=== PATIENT | male | born 1980 | race Caucasian/White ===

== ENCOUNTER → 2018-09-10 | Outpatient (CLI) | payer MEDICAID, OTHER ==
[~2018-09-10] MED LIST: BUSP10TA95; CEPH500C PO; PARO20TA5; SULF1TAB35 PO
--- NOTE | 2018-09-11 07:03 | Diagnostic Imaging Report ---
Exam: CT right ankle without contrast. Date: September 10, 2018. Indication: 37-year-old male, calcaneal fracture. Jumped over a wall and landed on heel on Saturday. Comparison: None available. Technique: Axial CT images of the right ankle without contrast were obtained. Coronal and sagittal reformats were obtained and provided. Findings: There is a severely comminuted displaced calcaneal fracture. There is involvement of the posterior margin of the Achilles tendon including near the Achilles tendon insertion best illustrated on sagittal image 18. More inferior aspect of the posterior calcaneus is also involved. There is fracture extension to the posterior calcaneal facet with anterior to posterior offset at articulating surface measuring approximately 2.7 mm measured on sagittal image 17. There is a slight proximal to distal offset of the articulating surface of the lower aspect of the posterior calcaneal facet measuring up to 2.6 mm on sagittal image 15. The middle calcaneal facet is intact. The anterior process of the calcaneus is intact. The fracture extends just medial to the articulating surface of the calcaneus in the region of the calcaneocuboid articulation. There is fracture involvement of the lateral calcaneus proximal to the peroneal tubercle with displaced fracture fragments in this region. There are several fracture fragments of the central calcaneus which are displaced in medial to lateral direction. There is some mild asymmetric widening of the posterior subtalar joint. The anterior subtalar joint is normally aligned. There is no additional identified acute fracture. There is no identified tendon entrapment. There is diffuse subcutaneous edema. Impression: 1. Severely comminuted displaced fracture of the calcaneus including involvement of the articulating surface of the posterior calcaneal facet with mild loss at the articulation of the posterior calcaneal facet and mild asymmetric widening at the posterior subtalar articulation. 2. No identified tendon entrapment. Dictated by: Dictated on workstation # [id number]
== END ==
LOC: RAD 08:42
PROVIDERS: ATTEND Nurse Practitioner Community Health
DX: S92.001A Unspecified fracture of right calcaneus, initial encounter for closed fracture (principal); W17.89XA Other fall from one level to another, initial encounter
CPT/HCPCS: 73700

== ENCOUNTER 2018-09-26 20:15 | Emergency (ER) | payer SELFPAY ==
[~2018-09-26] VITALS: Ht 177.8 cm; Wt 83.9 kg
--- NOTE | 2018-09-26 20:25 | ED Lower Extremity ---
General Stated Complaint: FALL/L ANKLE INJ Source: patient Exam Limitations: no limitations History of Present Illness Date Seen by Provider: Sep 26, 2018 Time Seen by Provider: 20:22 Initial Comments To ER per private vehicle in a wheelchair with a walking boot on the right foot. He states that he "shattered" his right ankle about a month ago and is awaiting surgery at the [facility]. He was recently in prison and just got out. While going down some stairs E tripped last night. He did injure the left ankle in doing so. He now has left ankle swelling and pain. Onset: just prior to arrival Severity: moderate Pain/Injury Location: left ankle Method of Injury: fell Modifying Factors: Worse With Movement Allergies and Home Medications Allergies Coded Allergies: No Known Drug Allergies (Unverified , 09/26/18) Home Medications Lorazepam 1 Mg Tablet, 1 MG SL Q2H PRN for ANXIETY, (Reported) Sulfamethoxazole/Trimethoprim 1 Each Tablet, 1 EACH PO BID Prescribed by: JERILYN SHER on 07/25/15 0251 Patient Home Medication List Home Medication List Reviewed: Yes Review of Systems Constitutional: see HPI EENTM: see HPI Respiratory: no symptoms reported Cardiovascular: no symptoms reported Genitourinary: no symptoms reported Musculoskeletal: see HPI Skin: no symptoms reported Psychiatric/Neurological: No Symptoms Reported Past Yslzkax-Zaigql-Govogv Hx Patient Social History Recent Foreign Travel: No Contact w/Someone Who Travel: No Immunizations Up To Date Tetanus Booster (TDap): Unknown Past Medical History Appendectomy, Orthopedic Physical Exam Vital Signs Vital Signs - First Documented 09/26/18 20:24 Temp 99.1 Pulse 128 Resp 14 B/P (MAP) 118/73 (88) Pulse Ox 99 O2 Delivery Room Air Capillary Refill : Height, Weight, BMI Height: 5'10" Weight: 160lbs. oz. 72.853720zg; 22.96 BMI Method:Stated General Appearance: WD/WN, no apparent distress HEENT: PERRL/EOMI, normal ENT inspection Respiratory: no respiratory distress, no accessory muscle use Hips: bilateral hip non-tender, bilateral hip normal inspection, bilateral hip normal range of motion Legs: bilateral leg non-tender, bilateral leg normal inspection, bilateral leg normal range of motion Knees: bilateral knee non-tender, bilateral knee normal inspection, bilateral knee normal range of motion Ankles: left ankle pain, left ankle soft tissue tenderness, left ankle swelling Feet: bilateral foot non-tender, bilateral foot normal inspection, bilateral foot normal range of motion Neurologic/Psychiatric: alert, normal mood/affect, oriented x 3 Skin: normal color, warm/dry Progress/Results/Core Measures Results/Orders My Orders Orders - JOYCELYN LANGLEY APRN Ankle, Left, 3 Views (09/26/18 20:21) Vital Signs/I&O 09/26/18 20:24 Temp 99.1 Pulse 128 Resp 14 B/P (MAP) 118/73 (88) Pulse Ox 99 O2 Delivery Room Air Departure Impression Primary Impression: Sprain and strain of ankle Disposition: 01 HOME, SELF-CARE Condition: Stable Departure-Patient Inst. Decision time for Depature: 21:28 Referrals: [facility] (PCP/Family) Primary Care Physician Patient Instructions: Ankle Sprain Add. Discharge Instructions: 1. Elevate the foot as much as possible 2. Keep it wrapped as she had it 3. Medication as directed. JOYCELYN LANGLEY APRN Sep 26, 2018 20:25
--- OUTSIDE RECORDS SUMMARY | 2018-09-26 20:25 | XMS REPORT ---
Author Author Migration, Doctor Organization [facility] Address Unknown Phone Unavailable Care Team Providers Care Museum Registrar Name Role Phone Migration, Doctor Unavailable Unavailable PROBLEMS Type Condition ICD9-CM Code [id number] Code Onset Dates Condition Status SNOMED Code Problem Chronic hepatitis C without hepatic coma B18.2 Active 396649327 Problem Erectile dysfunction, unspecified erectile dysfunction type N52.9 Active 975063496 Problem Mood disorder F39 Active 70412766 Problem Anxiety F41.9 Active 03528676 Problem Carpal tunnel syndrome, right upper limb G56.01 Active 48400557 Problem HPV (human papilloma virus) anogenital infection A63.0 Active 016236400 ALLERGIES No Information ENCOUNTERS Encounter Location Date Diagnosis [facility] [id number] [place] [address] July, Mood disorder F39 [facility] [address] [place] [id number] Jun, Mood disorder F39 [facility] [id number] [place] [address] May, [facility] [id number] [place] [address] Feb, [facility] [id number] [place] [address] Jan, Anxiety F41.9 [facility] [id number] [place] [address] Jan, Anxiety F41.9 [facility] [id number] [place] [address] 15 Jan, 2018 Anxiety F41.9 ; Chronic hepatitis C without hepatic coma B18.2 and Erectile dysfunction, unspecified erectile dysfunction type N52.9 [facility] [id number] [place] [address] Dec, Anxiety F41.9 [facility] [id number] [place] [address] Sep, Lateral epicondylitis, right elbow M77.11 [facility] [id number] [place] [address] Aug, [facility] [id number] [place] [address] Jun, [facility] [id number] [place] [address] Apr, Lateral epicondylitis, right elbow M77.11 [facility] [id number] [place] [address] Mar, Lateral epicondylitis, right elbow M77.11 [facility] [id number] [place] [address] Feb, Elbow tendinitis M77.8 [facility] [id number] [place] [address] Jan, Pneumonia of right lower lobe due to infectious organism J18.1 [facility] [id number] [place] [address] Dec, Elbow tendinitis M77.8 [facility] [id number] [place] [address] Dec, Anxiety F41.9 [facility] [id number] [place] [address] Sep, Chronic hepatitis C without hepatic coma B18.2 [facility] [address] [id number] Mar, Anxiety F41.9 [facility] [id number] [place] [address] Feb, [facility] [id number] [place] [address] Jan, [facility] [id number] [place] [address] Jan, [facility] [id number] [place] [address] Dec, Dental caries K02.9 [facility] [id number] [place] [id number] Dec, [facility] [address] [address] Dec, [facility] [id number] [place] [address] Dec, Dental examination Z01.20 [facility] [id number] [place] [address] Nov, [facility] [id number] [place] [address] Oct, Anxiety F41.9 [facility] [id number] [place] [address] Sep, [facility] [id number] [place] [address] Aug, Abscess of buttock, right L02.31 [facility] [id number] [place] [address] July, Abscess of buttock, right L02.31 [facility] [id number] [place] [address] Feb, Anxiety F41.9 [facility] [id number] [place] [address] Jan, Mood disorder F39 [facility] [id number] [place] [address] Jan, Mood disorder F39 and Rib contusion, right, subsequent encounter S20.211D [facility] [address] [id number] Jan, Anxiety F41.9 and Contusion, chest wall, right, initial encounter S20.211A [facility] [id number] [place] [address] Dec, [facility] [id number] [place] [address] Oct, Anxiety 300.00 [facility] [id number] [place] [address] Sep, Depression 311 [facility] [id number] [place] [address] Jun, [facility] [id number] [place] [address] Jun, [facility] [id number] [place] [address] May, [facility] [id number] [place] [address] May, [facility] [id number] [place] [address] Apr, [facility] [id number] [place] [address] Apr, [facility] [id number] [place] [address] Apr, [facility] [id number] [place] [address] Apr, [facility] [address] [address] Mar, [facility] [id number] [place] [address] Mar, [facility] [address] [address] Mar, [facility] [id number] [place] [address] Mar, [facility] [place] [facility] [address] [id number] [place] [address] Nov, [facility] [place] [facility] [address] [id number] [place] [address] Nov, [facility] [place] [facility] [address] [id number] [place] [address] Nov, [facility] [place] [facility] [address] [id number] [place] [address] Nov, [facility] [place] [facility] [address] [id number] [place] [address] Oct, [facility] [place] [facility] [address] [id number] [place] [address] Oct, [facility] [place] [facility] [address] [id number] [place] [address] Oct, [facility] [place] [facility] [address] [id number] [place] [address] Oct, [facility] [place] [facility] [address] [id number] [place] [address] Oct, [facility] [place] [facility] [address] [id number] [place] [address] Oct, [facility] [place] [facility] [address] [id number] [place] [address] Nov, [facility] [place] [facility] [address] [id number] [place] [address] Jun, [facility] [place] [facility] [address] [id number] [place] [address] Jun, [facility] [place] [facility] [address] [id number] [place] [address] Apr, [facility] [place] [facility] [address] [id number] [place] [address] Jan, [facility] [place] [facility] [address] [facility] [id number] [address] Jan, [facility] [id number] [address] Jun, [facility] [id number] [address] Jun, [facility] [id number] [address] Mar, [facility] [address] [address] Mar, [facility] [id number] [address] Mar, [facility] [id number] [address] May, IMMUNIZATIONS No Known Immunizations SOCIAL HISTORY Never Assessed [place] FOR [place]IT [place] [place] VITAL SIGNS MEDICATIONS Unknown Medications RESULTS No Results PROCEDURES No Known procedures INSTRUCTIONS MEDICATIONS ADMINISTERED No Known Medications MEDICAL (GENERAL) HISTORY Type Description Date Medical History carpal tunnel Medical History hemorrhoids Medical History depression Medical History HPV Medical History Cannabis abuse Medical History Alcohol abuse Surgical History appendectomy Surgical History Shattered jaw repaired 18 yoa Hospitalization History surgery
--- OUTSIDE RECORDS SUMMARY | 2018-09-26 20:25 | XMS REPORT ---
Author Author Migration, Doctor Organization [facility] Address Unknown Phone Unavailable Care Team Providers Care Die Turner Name Role Phone Migration, Doctor Unavailable Unavailable PROBLEMS Type Condition ICD9-CM Code XXX05-OR Code Onset Dates Condition Status SNOMED Code Problem Chronic hepatitis C without hepatic coma B18.2 Active 207329406 Problem Erectile dysfunction, unspecified erectile dysfunction type N52.9 Active 060189010 Problem Mood disorder F39 Active 40488273 Problem Anxiety F41.9 Active 62554209 Problem Carpal tunnel syndrome, right upper limb G56.01 Active 76300970 Problem HPV (human papilloma virus) anogenital infection A63.0 Active 478100283 ALLERGIES No Information ENCOUNTERS Encounter Location Date Diagnosis [facility] [address] [address] Jun, [facility] [id number] [place] [address] May, [facility] [address] [address] Feb, [facility] [id number] [place] [address] Jan, Anxiety F41.9 [facility] [id number] [place] [address] Jan, Anxiety F41.9 [facility] [id number] [place] [address] Jan, Anxiety F41.9 ; Chronic hepatitis C without hepatic coma B18.2 and Erectile dysfunction, unspecified erectile dysfunction type N52.9 [facility] [id number] [place] [address] Dec, Anxiety F41.9 [facility] [address] [address] Sep, Lateral epicondylitis, right elbow M77.11 [facility] [id number] [place] [address] Aug, [facility] [id number] [place] [address] Jun, [facility] [id number] [place] [address] Apr, Lateral epicondylitis, right elbow M77.11 [facility] [id number] [place] [address] Mar, Lateral epicondylitis, right elbow M77.11 [facility] [id number] [place] [address] Feb, Elbow tendinitis M77.8 [facility] [id number] [place] [address] Jan, Pneumonia of right lower lobe due to infectious organism J18.1 [facility] [id number] [place] [address] Dec, Elbow tendinitis M77.8 [facility] [address] [place] [address] Dec, Anxiety F41.9 [facility] [id number] [place] [address] Sep, Chronic hepatitis C without hepatic coma B18.2 [facility] [address] [id number] Mar, 2016 Anxiety F41.9 [facility] [id number] [place] [address] Feb, [facility] [id number] [place] [address] Jan, [facility] [id number] [place] [address] Jan, [facility] [address] [address] Dec, Dental caries K02.9 [facility] [address] [id number] Dec, [facility] [address] [place] [address] Dec, [facility] [id number] [place] [address] Dec, Dental examination Z01.20 [facility] [id number] [place] [address] Nov, [facility] [id number] [place] [address] Oct, Anxiety F41.9 [facility] [id number] [place] [address] Sep, [facility] [id number] [place] [address] Aug, Abscess of buttock, right L02.31 [id number] [place] [address] July, Abscess of buttock, right L02.31 [address] [place] [address] Feb, Anxiety F41.9 [facility] [address] [place] [address] Jan, Mood disorder F39 [facility] [address] [place] [address] Jan, Mood disorder F39 and Rib contusion, right, subsequent encounter S20.211D [facility] [address] [place] [id number] Jan, 2015 Anxiety F41.9 and Contusion, chest wall, right, initial encounter S20.211A [facility] [address] [id number] [place] [address] Dec, [facility] [address] [facility] [id number] [place] [address] Oct, Anxiety 300.00 [facility] [place] [facility] [address] [facility] [id number] [place] [address] Sep, Depression 311 [facility] [place] [facility] [address] [facility] [id number] [place] [address] Jun, [facility] [place] [facility] [address] [facility] [id number] [place] [address] Jun, [facility] [place] [facility] [address] [facility] [id number] [place] [address] May, [facility] [place] [facility] [id number] [address] May, [facility] [place] [facility] [address] [facility] [id number] [place] [address] Apr, [facility] [place] [facility] [address] [facility] [id number] [place] [address] Apr, [facility] [place] [facility] [id number] [address] Apr, [facility] [place] [facility] [address] [facility] [id number], [place] [address] Apr, [facility] [place] [facility] [address] [facility] [id number], [place] [address] Mar, [facility] [place] [facility] [address] [facility] [id number] [place] [address] Mar, [facility] [place] [facility] [address] [facility] [id number], [place] [address] Mar, [facility] [place] [facility] [address] [facility] [id number], [place] [address] Mar, [facility] [place] [facility] [address] [facility] [id number] [place] [address] Nov, [facility] [place] [facility] [address] [id number] [place] [address] Nov, [facility] [place] [facility] [address] [id number] [place] [address] Nov, [facility] [place] [facility] [address] [id number] [place] [address] Nov, [facility] [place] [facility] [address] [id number] [place] [address] Oct, [facility] [place] [facility] [address] [id number] [place] [address] Oct, [facility] [place] [facility] [address] [id number] [place] [address] Oct, [facility] [place] [facility] [address] [id number] [place] [address] Oct, [facility] [place] [facility] [address] [id number] [place] [address] Oct, [facility] [place] [facility] [address] [id number] [place] [address] Oct, [facility] [place] [facility] [address] [id number] [place] [address] Nov, [facility] [place] [facility] [address] [id number] [place] [address] Jun, [facility] [place] [facility] [address] [id number] [place] [address] Jun, [facility] [place] [facility] [address] [id number] [place] [address] Apr, [facility] [place] [facility] [address] [id number] [place] [address] Jan, [facility] [place] [facility] [address] [id number] [place] [address] Jan, [facility] [place] [facility] [address] [facility] [id number], [place] [address] Jun, [facility] [id number] [address] Jun, [facility] [address] [address] Mar, [facility] [id number] [address] Mar, [facility] [address] [facility] [id number], [place] [address] Mar, [facility] [address] [facility] [id number], [place] [address] May, IMMUNIZATIONS No Known Immunizations SOCIAL HISTORY Never Assessed REASON FOR VISIT [place] [place] OF C[place] VITAL SIGNS MEDICATIONS Unknown [...]
--- OUTSIDE RECORDS SUMMARY | 2018-09-26 20:25 | XMS REPORT ---
Author Author Migration, Doctor Organization [facility] Address Unknown Phone Unavailable Care Team Providers Care Automatic Splicing Machine Operator Name Role Phone Migration, Doctor Unavailable Unavailable PROBLEMS Type Condition ICD9-CM Code AHG16-OW Code Onset Dates Condition Status SNOMED Code Problem Chronic hepatitis C without hepatic coma B18.2 Active 394403075 Problem Erectile dysfunction, unspecified erectile dysfunction type N52.9 Active 757797552 Problem Mood disorder F39 Active 86389627 Problem Anxiety F41.9 Active 33895797 Problem Carpal tunnel syndrome, right upper limb G56.01 Active 33841799 Problem HPV (human papilloma virus) anogenital infection A63.0 Active 469504025 ALLERGIES No Information ENCOUNTERS Encounter Location Date Diagnosis [facility] [address] [address] Jun, [facility] [id number] [place] [address] May, [facility] [address] [address] Feb, [facility] [id number] [place] [address] Jan, Anxiety F41.9 [facility] [id number] [place] [address] Jan, Anxiety F41.9 [facility] [id number] [place] [address] Jan, Anxiety F41.9 ; Chronic hepatitis C without hepatic coma B18.2 and Erectile dysfunction, unspecified erectile dysfunction type N52.9 [facility] [id number] [place] [address] Dec, Anxiety F41.9 [facility] [address] [address] Sep, Lateral epicondylitis, right elbow M77.11 [facility] [id number] [place] [address] Aug, [facility] [id number] [place] [address] Jun, [facility] [id number] [place] [address] Apr, Lateral epicondylitis, right elbow M77.11 [facility] [id number] [place] [address] Mar, Lateral epicondylitis, right elbow M77.11 [facility] [id number] [place] [address] Feb, Elbow tendinitis M77.8 [facility] [id number] [place] [address] Jan, Pneumonia of right lower lobe due to infectious organism J18.1 [facility] [id number] [place] [address] Dec, Elbow tendinitis M77.8 [facility] [address] [place] [address] Dec, Anxiety F41.9 [facility] [id number] [place] [address] Sep, Chronic hepatitis C without hepatic coma B18.2 [facility] [address] [id number] 10 Mar, 2016 Anxiety F41.9 [facility] [id number] [place] [address] Feb, [facility] [id number] [place] [address] Jan, [facility] [id number] [place] [address] Jan, [facility] [address] [address] Dec, Dental caries K02.9 [facility] [address] [id number] Dec, [facility] [address] [place] [address] Dec, [facility] [id number] [place] [address] Dec, Dental examination Z01.20 [facility] [id number] [place] [address] Nov, [facility] [id number] [place] [address] Oct, Anxiety F41.9 [facility] [id number] [place] [address] Sep, [facility] [id number] [place] [address] Aug, Abscess of buttock, right L02.31 [place] [id number] [place] [address] July, Abscess of buttock, right L02.31 [place] [address] [place] [address] Feb, Anxiety F41.9 [facility] [address] [place] [address] Jan, Mood disorder F39 [facility] [address] [place] [address] Jan, Mood disorder F39 and Rib contusion, right, subsequent encounter S20.211D [facility] [address] [address] 03 Jan, 2015 Anxiety F41.9 and Contusion, chest wall, right, initial encounter S20.211A [facility] [address] [id number] [place] [address] Dec, [facility] [address] [facility] [id number] [place] [address] Oct, Anxiety 300.00 [facility] [place] [facility] [address] [facility] [id number] [place] [address] Sep, Depression 311 [facility] [place] [facility] [address] [facility] [id number] [place] [address] Jun, [facility] [place] [facility] [address] [facility] [id number] [place] [address] Jun, [facility] [place] [facility] [address] [facility] [id number] [place] [address] May, [facility] [place] [facility] [id number] [place] [address] May, [facility] [place] [facility] [address] [facility] [id number] [place] [address] Apr, [facility] [place] [facility] [address] [facility] [id number] [place] [address] Apr, [facility] [place] [facility] [id number] [address] Apr, [facility] [place] [facility] [address] [facility] [id number], [place] [address] Apr, [facility] [place] [facility] [address] [facility] [id number], [place] [address] Mar, [facility] [place] [facility] [address] [facility] [id number] [place] [address] Mar, [facility] [place] [facility] [address] [facility] [id number], [place] [address] Mar, [facility] [place] [facility] [address] [facility] [id number], [place] [address] Mar, [facility] [place] [facility] [address] [facility] [id number] [place] [address] Nov, [facility] [place] [facility] [address] [id number] [place] [address] Nov, [facility] [place] [facility] [address] [id number] [place] [address] Nov, [facility] [place] [facility] [address] [id number] [place] [address] Nov, [facility] [place] [facility] [address] [id number] [place] [address] Oct, [facility] [place] [facility] [address] [id number] [place] [address] Oct, [facility] [place] [facility] [address] [id number] [place] [address] Oct, [facility] [place] [facility] [address] [id number] [place] [address] Oct, [facility] [place] [facility] [address] [id number] [place] [address] Oct, [facility] [place] [facility] [address] [id number] [place] [address] Oct, [facility] [place] [facility] [address] [id number] [place] [address] Nov, [facility] [place] [facility] [address] [id number] [place] [address] Jun, [facility] [place] [facility] [address] [id number] [place] [address] Jun, [facility] [place] [facility] [address] [id number] [place] [address] Apr, [facility] [place] [facility] [address] [id number] [place] [address] Jan, [facility] [place] [facility] [address] [id number] [place] [address] Jan, [facility] [place] [facility] [address] [facility] [id number], [place] [address] Jun, [facility] [address] [facility] [id number], [place] [address] Jun, [facility] [address] [facility] [id number], [place] [address] Mar, [facility] [address] [facility] [id number], [place] [address] Mar, [facility] [address] [facility] [id number], [place] [address] Mar, [facility] [address] [facility] [id number], [place] [address] May, IMMUNIZATIONS No Known Immunizations SOCIAL HISTORY Never Assessed REASON FOR VISIT EMR-[facility] PLAN OF CARE VITAL SIGNS MEDICATIONS Medication Instructions Dosage Frequency Start Date End Date Duration Status Azithromycin 250 mg 2 Tablet by Oral route on day 1 then take 1 daily for 5 days Nov, Active Proctosol-HC 2.5 % 1 serene by Rectal route 2 times per day for 7 day(s) Apr, Active Hydrocortisone 2.5 % apply 1 Ap to the affected area(s) by Topical route 2 times per day Mar, Active Wellbutrin SR 150 mg 1 Tablet 2 times per day May, Active RESULTS No Results PROCEDURES No Known procedures INSTRUCTIONS MEDICATIONS ADMINISTERED No Known Medications MEDICAL (GENERAL) HISTORY Type Description Date Medical History carpal tunnel Medical History hemorrhoids Medical History depression Medical History HPV Medical History Cannabis abuse Medical History Alcohol abuse Surgical History appendectomy Surgical History Shattered jaw repaired 18 yoa Hospitalization History surgery
--- OUTSIDE RECORDS SUMMARY | 2018-09-26 20:25 | XMS REPORT ---
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 Name Role Phone ANGY GILL Unavailable PROBLEMS Type Condition ICD9-CM Code ZQR37-CT Code Onset Dates Condition Status SNOMED Code Problem Chronic hepatitis C without hepatic coma B18.2 Active 960239510 Problem Erectile dysfunction, unspecified erectile dysfunction type N52.9 Active 962388423 Problem Mood disorder F39 Active 79276460 Problem Anxiety F41.9 Active 00447632 Problem Carpal tunnel syndrome, right upper limb G56.01 Active 13292531 Problem HPV (human papilloma virus) anogenital infection A63.0 Active 514858087 ALLERGIES No Information ENCOUNTERS Encounter Location Date Diagnosis [facility] [address] [address] Jun, [facility] [address] [address] May, [facility] [address] [address] Feb, [place] [address] [address] Jan, Anxiety F41.9 [facility] [address] [address] Jan, Anxiety F41.9 [facility] [address] [address] 15 Jan, 2018 Anxiety F41.9 ; Chronic hepatitis C without hepatic coma B18.2 and Erectile dysfunction, unspecified erectile dysfunction type N52.9 [facility] [address] [address] Dec, Anxiety F41.9 [facility] [address] [place] [address] Sep, Lateral epicondylitis, right elbow M77.11 [facility] [id number] [place] [address] Aug, [facility] [id number] [place] [address] Jun, [facility] [address] [address] Apr, Lateral epicondylitis, right elbow M77.11 [place] [address] [address] Mar, Lateral epicondylitis, right elbow M77.11 [facility] [id number] [place] [address] Feb, Elbow tendinitis M77.8 [facility] [id number] [place] [address] Jan, Pneumonia of right lower lobe due to infectious organism J18.1 [facility] [id number] [place] [address] Dec, Elbow tendinitis M77.8 [place] [id number] [place] [address] Dec, Anxiety F41.9 [facility] [id number] [place] [address] Sep, Chronic hepatitis C without hepatic coma B18.2 [facility] [address] [place] [place] [id number] Mar, Anxiety F41.9 [facility] [id number] [place] [address] Feb, [facility] [id number] [place] [address] Jan, [place] [address] [address] Jan, [facility] [id number] [place] [address] Dec, Dental caries K02.9 [facility] [address] [address] Dec, [facility] [address] [address] Dec, [facility] [id number] [place] [address] Dec, Dental examination Z01.20 [facility] [id number] [place] [address] Nov, [facility] [id number] [place] [address] Oct, Anxiety F41.9 [facility] [id number] [place] [address] Sep, [facility] [id number] [place] [address] Aug, Abscess of buttock, right L02.31 [facility] [id number] [place] [address] July, Abscess of buttock, right L02.31 [facility] [address] [place] [address] Feb, Anxiety F41.9 [facility] [address] [place] [address] Jan, Mood disorder F39 [facility] [id number] [place] [address] Jan, Mood disorder F39 and Rib contusion, right, subsequent encounter S20.211D [facility] [address] [place] [id number] Jan, Anxiety F41.9 and Contusion, chest wall, right, initial encounter S20.211A [facility] [id number] [place] [address], [place] [address] Dec, [facility] [id number] [place] [address] Oct, Anxiety 300.00 [facility] [id number] [place] [address] Sep, Depression 311 [facility] [id number] [place] [address] Jun, [facility] [id number] [place] [address] Jun, [facility] [id number] [place] [address] May, [facility] [id number] [place] [address] May, [facility] [id number] [place] [address] Apr, [facility] [id number] [place] [address] Apr, [facility] [id number] [address] Apr, [facility] [id number] [place] [address] Apr, [facility] [address] [place] [address] Mar, [facility] [id number] [place] [address] Mar, [facility] [address] [address] Mar, [facility] [address] [place] [address] Mar, [facility] [place] [facility] [address] [id number] [place] [address] Nov, [facility] [place] [facility] [address] [id number] [place] [address] Nov, [facility] [place] [facility] [address] [id number] [place] [address] Nov, [facility] [place] [facility] [address] [id number] [place] [address] Nov, [facility] [place] [facility] [address] [id number] [place] [address] Oct, [facility] [place] [facility] [address] [id number] [place] [address] Oct, [facility] [place] [facility] [address] [id number] [place] [address] Oct, [facility] [place] [facility] [address] [id number] [place] [address] Oct, [facility] [place] [facility] [address] [id number] [place] [address] Oct, [facility] [place] [facility] [address] [id number] [place] [address] Oct, [facility] [place] [facility] [address] [id number] [place] [address] Nov, [facility] [place] [facility] [address] [id number] [place] [address] Jun, [facility] [place] [facility] [address] [id number] [place] [address] Jun, [facility] [place] [facility] [address] [id number] [place] [address] Apr, [facility] [place] [facility] [address] [id number] [place] [address] Jan, [facility] [place] [facility] [address] [facility] [id number] [address] 13 Jan, 2012 [facility] [address] [facility] [id number] [address] Jun, [facility] [id number] [address] Jun, [facility] [id number] [address] Mar, [facility] [id number] [address] Mar, [facility] [id number] [address] Mar, [facility] [id number] [address] 15 May, 2010 IMMUNIZATIONS No Known Immunizations SOCIAL HISTORY Never Assessed REASON FOR VISIT Hep C note PLAN OF CARE VITAL SIGNS MEDICATIONS Unknown [...]
--- OUTSIDE RECORDS SUMMARY | 2018-09-26 20:25 | XMS REPORT ---
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 Name Role Phone ANGY GILL Unavailable PROBLEMS Type Condition ICD9-CM Code ZTV02-IG Code Onset Dates Condition Status SNOMED Code Problem Chronic hepatitis C without hepatic coma B18.2 Active 734107937 Problem HPV (human papilloma virus) anogenital infection A63.0 Active 322519372 Problem Mood disorder F39 Active 35195620 Problem Carpal tunnel syndrome, right upper limb G56.01 Active 93615812 Problem Anxiety F41.9 Active 62135066 ALLERGIES No Known Allergies ENCOUNTERS Encounter Location Date Diagnosis [place] [address] [address] Dec, Anxiety F41.9 [facility] [id number] [place] [address] Sep, Lateral epicondylitis, right elbow M77.11 [facility] [id number] [place] [address] Aug, [facility] [id number] [place] [address] Jun, [facility] [id number] [place] [address] 15 Apr, 2017 Lateral epicondylitis, right elbow M77.11 [facility] [address] [address] Mar, Lateral epicondylitis, right elbow M77.11 [facility] [id number] [place] [address] 04 Feb, 2017 Elbow tendinitis M77.8 [facility] [address] [address] Jan, Pneumonia of right lower lobe due to infectious organism J18.1 [facility] [id number] [place] [address] Dec, Elbow tendinitis M77.8 [facility] [id number] [place] [address] Dec, Anxiety F41.9 [facility] [id number] [place] [address] Sep, Chronic hepatitis C without hepatic coma B18.2 [facility] [address] [place] [id number] Mar, Anxiety F41.9 [facility] [id number] [place] [address] Feb, [facility] [id number] [place] [address] Jan, [facility] [id number] [place] [address] Jan, [facility] [id number] [place] [address] Dec, Dental caries K02.9 [facility] [id number] [place] [id number] Dec, [facility] [id number] [place] [address] Dec, [facility] [id number] [place] [address] Dec, Dental examination Z01.20 [facility] [id number] [place] [address] Nov, [facility] [id number] [place] [address] Oct, Anxiety F41.9 [facility] [id number] [place] [address] Sep, [facility] [id number] [place] [address] Aug, Abscess of buttock, right L02.31 [facility] [id number] [place] [address] July, Abscess of buttock, right L02.31 [facility] [id number] [place] [address] Feb, Anxiety F41.9 [facility] [id number] [place] [address] Jan, Mood disorder F39 [facility] [id number] [place] [address] Jan, Mood disorder F39 and Rib contusion, right, subsequent encounter S20.211D [facility] [address] [place] [id number] Jan, Anxiety F41.9 and Contusion, chest wall, right, initial encounter S20.211A [facility] [id number] [place] [address] Dec, [facility] [id number] [place] [address] Oct, Anxiety 300.00 [facility] [id number] [place] [address] Sep, Depression 311 [facility] [address] [place] [address] Jun, [facility] [id number] [place] [address] Jun, [facility] [id number] [place] [address] May, [facility] [id number] [place] [address] May, [facility] [place] [facility] [address] [id number] [place] [address] Apr, [facility] [place] [facility] [address] [id number] [place] [address] Apr, [facility] [place] [facility] [address] [id number] [place] [address] Apr, [facility] [place] [facility] [address] [id number] [place] [address] Apr, [facility] [place] [facility] [address] [id number] [place] [address] Mar, [facility] [place] [facility] [address] [id number] [place] [address] Mar, [facility] [place] [facility] [address] [id number] [place] [address] Mar, [facility] [place] [facility] [address] [id number] [place] [address] Mar, [facility] [place] [facility] [address] [id number] [place] [address] Nov, [facility] [place] [facility] [address] [id number] [place] [address] Nov, [facility] [place] [facility] [address] [id number] [place] [address] Nov, [facility] [place] [facility] [address] [id number] [place] [address] Nov, [facility] [place] [facility] [address] [id number] [place] [address] Oct, [facility] [place] [facility] [address] [id number] [place] [address] Oct, [facility] [place] [facility] [address] [id number] [place] [address] Oct, [facility] [place] [facility] [address] [id number] [address] Oct, [facility] [id number] [address] Oct, [facility] [address] [address] Oct, [facility] [address] [address] Nov, [facility] [address] [address] Jun, [facility] [address] [address] Jun, [facility] [address] [address] Apr, [facility] [address] [address] Jan, [facility] [address] [address] Jan, [facility] [address], [place] [address] Jun, [facility] [address] [address] Jun, [facility] [id number] [address] Mar, [facility] [id number] [address] Mar, [facility] [id number] [address] Mar, [facility] [id number] [address] May, IMMUNIZATIONS No Known Immunizations SOCIAL HISTORY Never Assessed REASON FOR VISIT anxiety/depression - [place] PLAN OF CARE VITAL SIGNS Height 71 in 2018-01-13 Weight 191 lbs 2018-01-13 Temperature 97.7 degrees Fahrenheit 2018-01-13 Heart Rate 100 bpm 2018-01-13 Respiratory Rate 20 2018-01-13 Oximetry 98 % 2018-01-13 BMI 26.64 kg/m2 2018-01-13 Blood pressure systolic 128 mmHg 2018-01-13 Blood pressure diastolic 80 mmHg 2018-01-13 MEDICATIONS Medication Instructions Dosage Frequency Start Date End Date Duration Status Risperdal 0.5 MG Orally twice a day 1 tablet 12h 10 Mar, 2016 30 day(s) Not-Taking Naproxen Active Tylenol Active Ativan 1 MG Orally 3 times a day 1 tablet as needed 8h 23 Feb, 2015 28 days Active RESULTS No Results PROCEDURES No Known procedures INSTRUCTIONS MEDICATIONS ADMINISTERED No Known Medications MEDICAL (GENERAL) HISTORY Type Description Date Medical History carpal tunnel Medical History hemorrhoids Medical History depression Medical History HPV Medical History Cannabis abuse Medical History Alcohol abuse Surgical History appendectomy Surgical History Shattered jaw repaired 18 yoa Hospitalization History surgery
--- OUTSIDE RECORDS SUMMARY | 2018-09-26 20:26 | XMS REPORT ---
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 Name Role Phone ANGY GILL Unavailable PROBLEMS Type Condition ICD9-CM Code MYR14-OK Code Onset Dates Condition Status SNOMED Code Problem Chronic hepatitis C without hepatic coma B18.2 Active 715220859 Problem HPV (human papilloma virus) anogenital infection A63.0 Active 581299129 Problem Mood disorder F39 Active 08223260 Problem Carpal tunnel syndrome, right upper limb G56.01 Active 74618462 Problem Anxiety F41.9 Active 48283712 ALLERGIES No Information ENCOUNTERS Encounter Location Date Diagnosis [facility] [address] [address] Sep, Lateral epicondylitis, right elbow M77.11 [facility] [address] [address] Aug, [facility] [address] [address] 30 Jun, 2017 [facility] [id number] [place] [address] 15 Apr, 2017 Lateral epicondylitis, right elbow M77.11 [facility] [id number] [place] [address] Mar, Lateral epicondylitis, right elbow M77.11 [facility] [address] [address] 04 Feb, 2017 Elbow tendinitis M77.8 [facility] [id number] [place] [address] 15 Jan, 2017 Pneumonia of right lower lobe due to infectious organism J18.1 [facility] [id number] [place] [address] Dec, Elbow tendinitis M77.8 [facility] [id number] [place] [address] Dec, Anxiety F41.9 [facility] [id number] [place] [address] Sep, Chronic hepatitis C without hepatic coma B18.2 [facility] [address] [place] [id number] Mar, Anxiety F41.9 [facility] [id number] [place] [address] Feb, [facility] [id number] [place] [address] Jan, [facility] [address] [address] Jan, [facility] [id number] [place] [address] Dec, Dental caries K02.9 [facility] [id number] [place] [id number] Dec, [facility] [id number] [place] [address] Dec, [facility] [id number] [place] [address] Dec, Dental examination Z01.20 [facility] [id number] [place] [address] Nov, [facility] [id number] [place] [address] Oct, Anxiety F41.9 [facility] [id number] [place] [address] Sep, [facility] [id number] [place] [address] Aug, Abscess of buttock, right L02.31 [facility] [id number] [place] [address] July, Abscess of buttock, right L02.31 [facility] [address] [place] [address] Feb, Anxiety F41.9 [facility] [id number] [place] [address] Jan, Mood disorder F39 [facility] [id number] [place] [address] Jan, Mood disorder F39 and Rib contusion, right, subsequent encounter S20.211D [facility] [address] [place] [id number] Jan, Anxiety F41.9 and Contusion, chest wall, right, initial encounter S20.211A [facility] [id number] [place] [address] Dec, [facility] [id number] [place] [address] Oct, Anxiety 300.00 [facility] [id number] [place] [address] Sep, Depression 311 [facility] [id number] [place] [address] Jun, [facility] [id number] [place] [address] Jun, [facility] [id number] [place] [address] May, [facility] [id number] [place] [address] May, [facility] [id number] [place] [address] Apr, [facility] [place] [facility] [address] [id number] [place] [address] Apr, [facility] [place] [facility] [address] [id number] [place] [address] Apr, [facility] [place] [facility] [address] [id number] [place] [address] Apr, [facility] [place] [facility] [address] [id number] [place] [address] Mar, [facility] [place] [facility] [address] [id number] [place] [address] Mar, [facility] [place] [facility] [address] [id number] [place] [address] Mar, [facility] [place] [facility] [address] [id number] [place] [address] Mar, [facility] [place] [facility] [address] [id number] [place] [address] Nov, [facility] [place] [facility] [address] [id number] [place] [address] Nov, [facility] [place] [facility] [address] [id number] [place] [address] Nov, [facility] [place] [facility] [address] [id number] [place] [address] Nov, [facility] [place] [facility] [address] [id number] [place] [address] Oct, [facility] [place] [facility] [address] [id number] [place] [address] Oct, [facility] [place] [facility] [address] [id number] [place] [address] Oct, [facility] [place] [facility] [address] [id number] [place] [address] Oct, [facility] [place] [facility] [address] [id number] [place] [address] Oct, [facility] [id number] [address] Oct, [facility] [address], [place] [address] Nov, [facility] [address], [place] [address] Jun, [facility] [address], [place] [address] Jun, [facility] [address], [place] [address] Apr, [facility] [id number] [place] [address] Jan, [facility] [address], [place] [address] Jan, [facility] [address], [place] [address] Jun, [facility] [address], [place] [address] Jun, [facility] [address], [place] [address] Mar, [facility] [address], [place] [address] Mar, [facility] [address], [place] [address] Mar, [facility] [id number] [address] May, IMMUNIZATIONS No Known Immunizations SOCIAL HISTORY Never Assessed REASON FOR VISIT Requests return call PLAN OF CARE VITAL SIGNS MEDICATIONS Unknown [...]
--- OUTSIDE RECORDS SUMMARY | 2018-09-26 20:26 | XMS REPORT ---
Author Author NICKI RAZA Organization [facility] [place] Address [address] [place] [address] Care Team Providers Care Paraprofessional Interpreter Name Role Phone NICKI RAZA Unavailable PROBLEMS Type Condition ICD9-CM Code BMB73-XX Code Onset Dates Condition Status SNOMED Code Problem Chronic hepatitis C without hepatic coma B18.2 Active 180701892 Problem HPV (human papilloma virus) anogenital infection A63.0 Active 981355395 Problem Mood disorder F39 Active 94747380 Problem Carpal tunnel syndrome, right upper limb G56.01 Active 70323180 Problem Anxiety F41.9 Active 56767243 ALLERGIES No Information ENCOUNTERS Encounter Location Date Diagnosis [facility] [place] [id number] [place] [address] Sep, Lateral epicondylitis, right elbow M77.11 [facility] [place] [id number] [place] [address] Aug, [facility] [place] [id number] [place] [address] Jun, [facility] [place] [id number] [place] [address] 15 Apr, 2017 Lateral epicondylitis, right elbow M77.11 [facility] [place] [id number] [place] [address] Mar, Lateral epicondylitis, right elbow M77.11 [facility] [id number] [place] [address] 04 Feb, 2017 Elbow tendinitis M77.8 [facility] [id number] [place] [address] 15 Jan, 2017 Pneumonia of right lower lobe due to infectious organism J18.1 [facility] [address] [address] Dec, Elbow tendinitis M77.8 [facility] [place] [id number] [place] [address] Dec, Anxiety F41.9 [facility] [place] [id number] [place] [address] Sep, Chronic hepatitis C without hepatic coma B18.2 [facility] [address] [place] [id number] Mar, Anxiety F41.9 [facility] [place] [id number] [place] [address] Feb, [facility] [place] [id number] [place] [address] Jan, [facility] [place] [id number] [place] [address] Jan, [facility] [place] [id number] [place] [address] Dec, Dental caries K02.9 [facility] [id number] [place] [id number] Dec, [facility] [place] [id number] [place] [address] Dec, [facility] [place] [id number] [place] [address] Dec, Dental examination Z01.20 [facility] [place] [id number] [place] [address] Nov, [facility] [place] [id number] [place] [address] Oct, Anxiety F41.9 [facility] [place] [id number] [place] [address] Sep, [facility] [place] [id number] [place] [address] Aug, Abscess of buttock, right L02.31 [facility] [place] [id number] [place] [address] July, Abscess of buttock, right L02.31 [facility] [place] [id number] [place] [address] Feb, Anxiety F41.9 [facility] [place] [id number] [place] [address] Jan, Mood disorder F39 [facility] [place] [id number] [place] [address] Jan, Mood disorder F39 and Rib contusion, right, subsequent encounter S20.211D [facility] [address] [id number] Jan, Anxiety F41.9 and Contusion, chest wall, right, initial encounter S20.211A [facility] [place] [id number] [place] [address] Dec, [facility] [place] [id number] [place] [address] Oct, Anxiety 300.00 [facility] [place] [id number] [place] [address] Sep, Depression 311 [facility] [place] [id number] [place] [address] Jun, [facility] [place] [id number] [place] [address] Jun, [facility] [place] [id number] [place] [address] May, [facility] [place] [id number] [place] [address] May, [facility] [place] [id number] [place] [address] Apr, [facility] [place] [facility] [address] [id number] [place] [address] Apr, [facility] [place] [facility] [address] [id number] [place] [address] Apr, [facility] [place] [facility] [address] [id number] [place] [address] Apr, [facility] [place] [facility] [address] [id number] [place] [address] Mar, [facility] [place] [facility] [address] [id number] [place] [address] Mar, [facility] [place] [facility] [address] [id number] [place] [address] Mar, [facility] [place] [facility] [address] [id number] [place] [address] Mar, [facility] [place] [facility] [address] [id number] [place] [address] Nov, [facility] [place] [facility] [address] [id number] [place] [address] Nov, [facility] [place] [facility] [address] [id number] [place] [address] Nov, [facility] [place] [facility] [address] [id number] [place] [address] Nov, [facility] [place] [facility] [address] [id number] [place] [address] Oct, [facility] [place] [facility] [address] [id number] [place] [address] Oct, [facility] [place] [facility] [address] [id number] [place] [address] Oct, [facility] [place] [facility] [address] [id number] [place] [address] Oct, [facility] [place] [facility] [address] [id number] [address] Oct, [facility] [place] [id number] [address] Oct, [facility] [place] [id number] [address] Nov, [facility] [place] [id number] [address] Jun, [facility] [place] [id number] [address] Jun, [facility] [place] [id number] [place] [address] Apr, [facility] [place] [id number] [place] [address] Jan, [facility] [place] [id number] [place] [address] Jan, [facility] [place] [id number] [address] Jun, [facility] [place] [id number] [place] [address] Jun, [facility] [place] [id number] [address] Mar, [facility] [place] [id number] [address] Mar, [facility] [place] [id number] [address] Mar, [facility] [place] [id number] [address] May, IMMUNIZATIONS No Known Immunizations SOCIAL HISTORY [...] Alcohol abuse Surgical [facility] 18 [facility]
--- OUTSIDE RECORDS SUMMARY | 2018-09-26 20:26 | XMS REPORT ---
Author ANGY [facility] eClinicalWorks Address Unknown Phone Unavailable Care Team Providers Care Steel Checker Name Role Phone ANGY GILL CP Unavailable Allergies, Adverse Reactions, Alerts Substance Reaction Event Type N.K.D.A. Info Not Available Non Drug Allergy Problems Problem Type Condition Code Onset Dates Condition Status Problem Carpal tunnel syndrome, right upper limb G56.01 Active Problem HPV (human papilloma virus) anogenital infection A63.0 Active Problem Mood disorder F39 Active Problem Anxiety F41.9 Active Assessment Anxiety F41.9 Active Medications Medication Code System Code Instructions Start Date End Date Status Dosage Ativan [facility] [address]-44 0.5 MG Orally 2 times a day Mar 16, 2015 1 tablet as needed Paxil [facility] [address]-81 20 MG Orally Once a day 1 tablet in the morning Procedures Procedure Coding System Code Date Office Visit, Est Pt., Level 3 CPT-4 26475 Mar 16, 2015 Vital Signs Date/Time: Mar 16, 2015 Cardiac Monitoring Heart Rate 74 bpm Weight 178.6 lbs Height 71 in BMI 24.91 Index Blood Pressure Diastolic 72 mmHg Blood Pressure Systolic 130 mmHg Results No Known Results Summary Purpose eClinicalWorks Submission
--- OUTSIDE RECORDS SUMMARY | 2018-09-26 20:26 | XMS REPORT ---
Author Author NAGY GILL [facility] Address [address] [place] [address] Care Team Providers Care Deputy Director Name Role Phone ANGY GILL Unavailable PROBLEMS Type Condition ICD9-CM Code MQM30-RT Code Onset Dates Condition Status SNOMED Code Problem Chronic hepatitis C without hepatic coma B18.2 Active 330077731 Problem Mood disorder F39 Active 48431204 Problem Anxiety F41.9 Active 44858082 Problem Carpal tunnel syndrome, right upper limb G56.01 Active 57539823 Problem HPV (human papilloma virus) anogenital infection A63.0 Active 287395105 ALLERGIES Unknown Allergies SOCIAL HISTORY No smoking Hx information available PLAN OF CARE VITAL SIGNS MEDICATIONS Unknown Medications RESULTS No Results PROCEDURES No Known procedures IMMUNIZATIONS No Known Immunizations
--- OUTSIDE RECORDS SUMMARY | 2018-09-26 20:26 | XMS REPORT ---
Author Author NICKI RAZA Organization [facility] Address [address] [place] [address] Care Team Providers Care Correspondence School Teacher Name Role Phone NICKI RAZA Unavailable PROBLEMS Type Condition ICD9-CM Code UQC01-CQ Code Onset Dates Condition Status SNOMED Code Problem Chronic hepatitis C without hepatic coma B18.2 Active 128299386 Problem HPV (human papilloma virus) anogenital infection A63.0 Active 401236485 Problem Mood disorder F39 Active 30136681 Problem Carpal tunnel syndrome, right upper limb G56.01 Active 85521328 Problem Anxiety F41.9 Active 95189561 ALLERGIES No Information ENCOUNTERS Encounter Location Date Diagnosis [facility] [address] [place] [address] Sep, Lateral epicondylitis, right elbow M77.11 [facility] [id number] [place] [address] Aug, [facility] [id number] [place] [address] Jun, [facility] [id number] [place] [address] 15 Apr, 2017 Lateral epicondylitis, right elbow M77.11 [facility] [address] [place] [address] Mar, Lateral epicondylitis, right elbow M77.11 [facility] [id number] [place] [address] 04 Feb, 2017 Elbow tendinitis M77.8 [facility] [address] [place] [address] 15 Jan, 2017 Pneumonia of right lower lobe due to infectious organism J18.1 [facility] [address] [address] Dec, Elbow tendinitis M77.8 [facility] [id number] [place] [address] Dec, Anxiety F41.9 [facility] [id number] [place] [address] Sep, Chronic hepatitis C without hepatic coma B18.2 [facility] [address] [place] [id number] Mar, Anxiety F41.9 [facility] [id number] [place] [address] Feb, [facility] [id number] [place] [address] Jan, [facility] [id number] [place] [address] Jan, [facility] [id number] [place] [address] Dec, Dental caries K02.9 [facility] [id number] [place] [id number] Dec, [facility] [id number] [place] [address] Dec, [facility] [id number] [place] [address] Dec, Dental examination Z01.20 [facility] [id number] [place] [address] Nov, [facility] [id number] [place] [address] Oct, Anxiety F41.9 [facility] [id number] [place] [address] Sep, [facility] [id number] [place] [address] Aug, Abscess of buttock, right L02.31 [facility] [id number] [place] [address] July, Abscess of buttock, right L02.31 [facility] [id number] [place] [address] Feb, Anxiety F41.9 [facility] [id number] [place] [address] Jan, Mood disorder F39 [facility] [id number] [place] [address] Jan, Mood disorder F39 and Rib contusion, right, subsequent encounter S20.211D [facility] [address] [id number] Jan, Anxiety F41.9 and Contusion, chest wall, right, initial encounter S20.211A [facility] [id number] [place] [address] Dec, [facility] [id number] [place] [address] Oct, Anxiety 300.00 [facility] [id number] [place] [address] Sep, Depression 311 [facility] [id number] [place] [address] Jun, [facility] [id number] [place] [address] Jun, [facility] [id number] [place] [address] May, [facility] [id number] [place] [address] May, [facility] [address] [place] [address] Apr, [facility] [place] [facility] [address] [id number] [place] [address] Apr, [facility] [place] [facility] [address] [id number] [place] [address] Apr, [facility] [place] [facility] [address] [id number] [place] [address] Apr, [facility] [place] [facility] [address] [id number] [place] [address] Mar, [facility] [place] [facility] [address] [id number] [place] [address] Mar, [facility] [place] [facility] [address] [id number] [place] [address] Mar, [facility] [place] [facility] [address] [id number] [place] [address] Mar, [facility] [place] [facility] [address] [id number] [place] [address] Nov, [facility] [place] [facility] [address] [id number] [place] [address] Nov, [facility] [place] [facility] [address] [id number] [place] [address] Nov, [facility] [place] [facility] [address] [id number] [place] [address] Nov, [facility] [place] [facility] [address] [id number] [place] [address] Oct, [facility] [place] [facility] [address] [id number] [place] [address] Oct, [facility] [place] [facility] [address] [id number] [place] [address] Oct, [facility] [place] [facility] [address] [id number] [place] [address] Oct, [facility] [place] [facility] [address] [id number] [address] Oct, [facility] [address] [address] Oct, [facility] [address] [address] Nov, [facility] [address] [address] Jun, [facility] [address] [address] Jun, [facility] [address] [place] [address] Apr, [facility] [id number] [place] [address] Jan, [facility] [address] [place] [address] Jan, [facility] [address] [address] Jun, [facility] [address] [place] [address] Jun, [facility] [address] [address] Mar, [facility] [address] [address] Mar, [facility] [address] [address] Mar, [facility] [address] [address] May, IMMUNIZATIONS No Known Immunizations SOCIAL HISTORY Never Assessed REASON FOR VISIT juventino ch/claudy Sebastian MA PLAN OF CARE Activity Details Follow Up 8 weeks Reason: VITAL SIGNS Height 71 in 2017-10-10 Blood pressure systolic 120 mmHg 2017-10-10 Blood pressure diastolic 76 mmHg 2017-10-10 MEDICATIONS Unknown Medications RESULTS No Results PROCEDURES Procedure Date Ordered Result Body Site DRAIN/INJECT, JOINT/BURSA October 10, 2017 DEPO MEDROL 80 MG/ML October 10, 2017 INSTRUCTIONS MEDICATIONS ADMINISTERED No Known Medications MEDICAL (GENERAL) HISTORY Type Description Date Medical History carpal tunnel Medical History hemorrhoids Medical History depression Medical History HPV Medical History Cannabis abuse Medical History Alcohol abuse Surgical History appendectomy Surgical History Shattered jaw repaired 18 yoa Hospitalization History surgery
--- OUTSIDE RECORDS SUMMARY | 2018-09-26 20:26 | XMS REPORT ---
Author Author PAUL RAZA Organization [facility] Address [address] [place] [address] Care Team Providers Care Business Office Technician Name Role Phone PAUL RAZA Unavailable PROBLEMS Type Condition ICD9-CM Code [id number] Code Onset Dates Condition Status SNOMED Code Problem Chronic hepatitis C without hepatic coma B18.2 Active 976552066 Problem HPV (human papilloma virus) anogenital infection A63.0 Active 037213606 Problem Mood disorder F39 Active 77998191 Problem Carpal tunnel syndrome, right upper limb G56.01 Active 08728068 Problem Anxiety F41.9 Active 93681575 ALLERGIES No Information ENCOUNTERS Encounter Location Date Diagnosis [place] [id number] [place] [address] Sep, [facility] [id number] [place] [address] Aug, [place] [id number] [place] [address] 30 Jun, 2017 [place] [id number] [place] [address] 15 Apr, 2017 Lateral epicondylitis, right elbow M77.11 [facility] [id number] [place] [address] 11 Mar, 2017 Lateral epicondylitis, right elbow M77.11 [facility] [id number] [place] [address] 04 Feb, 2017 Elbow tendinitis M77.8 [facility] [id number] [place] [address] 15 Jan, 2017 Pneumonia of right lower lobe due to infectious organism J18.1 [facility] [address], [place] [address] Dec, Elbow tendinitis M77.8 [facility] [id number] [place] [address] Dec, Anxiety F41.9 [facility] [id number] [place] [address] Sep, Chronic hepatitis C without hepatic coma B18.2 [facility] [address] [place] [id number] Mar, Anxiety F41.9 [facility] [id number] [place] [address] Feb, [facility] [id number] [place] [address] Jan, [facility] [id number] [place] [address] Jan, [facility] [id number] [place] [address] Dec, Dental caries K02.9 [facility] [id number] [place] [id number] Dec, [facility] [id number] [place] [address] Dec, [facility] [id number] [place] [address] Dec, Dental examination Z01.20 [facility] [address] [place] [address] Nov, [facility] [id number] [place] [address] Oct, Anxiety F41.9 [facility] [id number] [place] [address] Sep, [facility] [id number] [place] [address] Aug, Abscess of buttock, right L02.31 [facility] [address], [place] [address] July, Abscess of buttock, right L02.31 [facility] [address], [place] [address] Feb, Anxiety F41.9 [facility] [id number] [place] [address] Jan, Mood disorder F39 [facility] [address] [place] [address] Jan, Mood disorder F39 and Rib contusion, right, subsequent encounter S20.211D [facility] [address] [id number] Jan, Anxiety F41.9 and Contusion, chest wall, right, initial encounter S20.211A [facility] [id number] [place] [address] Dec, [facility] [id number] [place] [address] Oct, Anxiety 300.00 [facility] [id number] [place] [address] Sep, Depression 311 [facility] [address], [place] [address] 14 Jun, 2014 [facility] [id number] [place] [address] Jun, [facility] [address], [place] [address] May, [facility] [id number] [place] [address] May, [facility] [address], [place] [address] Apr, [facility] [address] [place] [address] Apr, [facility] [place] [facility] [address] [id number] [place] [address] Apr, [facility] [place] [facility] [address] [id number] [place] [address] Apr, [facility] [place] [facility] [address] [id number] [place] [address] Mar, [facility] [place] [facility] [address] [id number] [place] [address] Mar, [facility] [place] [facility] [address] [id number] [place] [address] Mar, [facility] [place] [facility] [address] [id number] [place] [address] Mar, [facility] [place] [facility] [address] [id number] [place] [address] Nov, [facility] [place] [facility] [address] [id number] [place] [address] Nov, [facility] [place] [facility] [address] [id number] [place] [address] Nov, [facility] [place] [facility] [address] [id number] [place] [address] Nov, [facility] [place] [facility] [address] [id number] [place] [address] Oct, [facility] [place] [facility] [address] [id number] [place] [address] Oct, [facility] [place] [facility] [address] [id number] [place] [address] Oct, [facility] [place] [facility] [address] [id number] [place] [address] Oct, [facility] [place] [facility] [address] [id number] [place] [address] Oct, [facility] [id number] [address] Oct, [facility] [address] [place] [address] Nov, [facility] [address], [place] [address] Jun, [facility] [address] [address] Jun, [facility] [address], [place] [address] Apr, [facility] [address] [place] [address] Jan, [facility] [address], [place] [address] Jan, [facility] [address] [place] [address] Jun, [facility] [address], [place] [address] Jun, [facility] [address] [place] [address] Mar, [facility] [address], [place] [address] Mar, [facility] [id number] [address] Mar, [facility] [id number] [address] May, IMMUNIZATIONS No Known Immunizations SOCIAL HISTORY Never Assessed REASON FOR VISIT Elbow pain f/u. Consult Paul Raza;Aida RT(R) PLAN OF CARE Activity Details Follow Up prn Reason: VITAL SIGNS Height 71 in 2017-05-09 Blood pressure systolic 116 mmHg 2017-05-09 Blood pressure diastolic 68 mmHg 2017-05-09 MEDICATIONS Unknown Medications RESULTS No Results PROCEDURES Procedure Date Ordered Result Body Site DRAIN/INJECT, JOINT/BURSA May 09, 2017 DEPO MEDROL 40 MG/ML May 09, 2017 INSTRUCTIONS MEDICATIONS ADMINISTERED No Known Medications MEDICAL (GENERAL) HISTORY Type Description Date Medical History carpal tunnel Medical History hemorrhoids Medical History depression Medical History HPV Medical History Cannabis abuse Medical History Alcohol abuse Surgical History appendectomy Surgical History Shattered jaw repaired 18 yoa Hospitalization History surgery
--- OUTSIDE RECORDS SUMMARY | 2018-09-26 20:27 | XMS REPORT ---
Author Author JAMIL Wood [facility] Address Unknown Care Team Providers Care Pararescue Craftsman Name Role Phone JAMIL Wood Unavailable PROBLEMS Type Condition ICD9-CM Code INH01-FL Code Onset Dates Condition Status SNOMED Code Problem Chronic hepatitis C without hepatic coma B18.2 Active 044927544 Problem HPV (human papilloma virus) anogenital infection A63.0 Active 149920076 Problem Mood disorder F39 Active 99961641 Problem Carpal tunnel syndrome, right upper limb G56.01 Active 10665296 Problem Anxiety F41.9 Active 60133691 ALLERGIES No Information SOCIAL HISTORY Never Assessed PLAN OF CARE VITAL SIGNS MEDICATIONS Medication Instructions Dosage Frequency Start Date End Date Duration Status Driscoll 5-325 MG Orally every 6 hrs 1 tablet as needed 6h 4 days Active Amoxicillin 500 MG Orally Four times a day 1 capsule 6h 7 days Active RESULTS No Results PROCEDURES No Known procedures IMMUNIZATIONS No Known Immunizations MEDICAL (GENERAL) HISTORY Type Description Date Medical History carpal tunnel Medical History hemorrhoids Medical History depression Medical History HPV Medical History Cannabis abuse Medical History Alcohol abuse Surgical History appendectomy Surgical History Shattered jaw repaired 18 yoa Hospitalization History surgery
--- OUTSIDE RECORDS SUMMARY | 2018-09-26 20:27 | XMS REPORT ---
Author Author ANGY GILL Organization [employer] Address Unknown Phone Unavailable Care Team Providers Care Weights And Measures Sealer Name Role Phone NAGY GILL CP Unavailable Allergies No Known Allergies Problems Problem Type Condition Code Onset Dates Condition Status Problem Carpal tunnel syndrome, right upper limb G56.01 Active Problem HPV (human papilloma virus) anogenital infection A63.0 Active Problem Mood disorder F39 Active Problem Anxiety F41.9 Active Medications Medication Code System Code Instructions Start Date End Date Status Dosage Ativan [facility] [address]-69 1 MG Orally 3 times a day Mar 16, 2015 1 tablet as needed Results No Known Results Summary Purpose [employer] Submission
--- OUTSIDE RECORDS SUMMARY | 2018-09-26 20:27 | XMS REPORT ---
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 Problem Human papilloma virus in conditions classified elsewhere and of unspecified site 079.4 Active Problem Nondependent alcohol abuse, unspecified drunkenness 305.00 Active Problem Depressive disorder, not elsewhere classified 311 Active Problem Combinations of drug dependence excluding opioid type drug, 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
--- OUTSIDE RECORDS SUMMARY | 2018-09-26 20:27 | XMS REPORT ---
Author Author ANGY GILL Organization [employer] Address Unknown Phone Unavailable Care Team Providers Care Youth Officer Name Role Phone ANGY GILL CP Unavailable Allergies No Known Allergies Problems Problem Type Condition Code Onset Dates Condition Status Problem Carpal tunnel syndrome, right upper limb G56.01 Active Problem HPV (human papilloma virus) anogenital infection A63.0 Active Problem Mood disorder F39 Active Problem Anxiety F41.9 Active Medications Medication Code System Code Instructions Start Date End Date [facility] [address]-28 1 MG Orally 2 times a day. Mar 16, 2015 1 tablet as needed Results No Known Results Summary Purpose [employer] Submission
--- OUTSIDE RECORDS SUMMARY | 2018-09-26 20:27 | XMS REPORT ---
Author JAMIL Castillo [employer] Address Unknown Phone Unavailable Care Team Providers Care Fisher Scallop Name Role Phone JAMIL CASTRO CP Unavailable Allergies, Adverse Reactions, Alerts Substance Reaction Event Type N.K.D.A. Info Not Available Non Drug Allergy Problems Problem Type Condition Code Onset Dates Condition Status Problem Carpal tunnel syndrome, right upper limb G56.01 Active Problem HPV (human papilloma virus) anogenital infection A63.0 Active Problem Mood disorder F39 Active Problem Anxiety F41.9 Active Assessment Dental caries K02.9 Active Medications Medication Code System Code Instructions Start Date End Date Status Dosage Ativan [facility] [address]-93 1 MG Orally 2 times a day. Mar 16, 2015 1 tablet as needed Paxil [facility] [address]-27 20 mg Orally Once a day 1 tablet in the morning Procedures Procedure Coding System Code Date EXTRAC ERUPTED TOOTH/EXPOSED ROOT CPT-4 D7140 Jan 09, 2016 Vital Signs Date/Time: Jan 09, 2016 Blood Pressure Diastolic 82 mmHg Blood Pressure Systolic 124 mmHg Height 71 in Results No Known Results Summary Purpose [employer] Submission
--- OUTSIDE RECORDS SUMMARY | 2018-09-26 20:27 | XMS REPORT ---
Author ANGY Bryan [facility] [employer] Address Unknown Phone Unavailable Care Team Providers Care Crank Hand Name Role Phone ANGY GILL CP Unavailable [...] Instructions Start Date End Date Status Dosage Paxil [facility] [address]-66 20 mg Orally Once a day 1 tablet in the morning Ativan [facility] [address]-89 1 MG Orally 2 times a day. Mar 16, 2015 1 tablet as needed Procedures Procedure Coding System Code Date Office Visit, Est Pt., Level 3 CPT-4 43150 Oct 24, 2015 Vital Signs Date/Time: Oct 24, 2015 Cardiac Monitoring Heart Rate 104 bpm Weight 165.2 lbs Height 71 in BMI 23.04 Index Blood Pressure Diastolic 80 mmHg Blood Pressure Systolic 135 mmHg Results No Known Results Summary Purpose [employer] Submission
--- OUTSIDE RECORDS SUMMARY | 2018-09-26 20:27 | XMS REPORT ---
Author Author KEARA GOODEN [facility] Address [address] [place] [address] Care Team Providers Care Nuclear Plant Equipment Operator Name Role Phone KEARA GOODEN Unavailable PROBLEMS Type Condition ICD9-CM Code PWP66-IU Code Onset Dates Condition Status SNOMED Code Problem Chronic hepatitis C without hepatic coma B18.2 Active 905246704 Problem HPV (human papilloma virus) anogenital infection A63.0 Active 293769854 Problem Mood disorder F39 Active 09022446 Problem Carpal tunnel syndrome, right upper limb G56.01 Active 69040193 Problem Anxiety F41.9 Active 56759599 ALLERGIES No Known Allergies ENCOUNTERS Encounter Location Date Diagnosis [place] [address] [address] 30 Jun, 2017 [facility] [address] [address] 15 Apr, 2017 Lateral epicondylitis, right elbow M77.11 [place] [id number] [place] [address] Mar, Lateral epicondylitis, right elbow M77.11 [facility] [id number] [place] [address] 04 Feb, 2017 Elbow tendinitis M77.8 [facility] [id number] [place] [address] 15 Jan, 2017 Pneumonia of right lower lobe due to infectious organism J18.1 [facility] [id number] [place] [address] 16 Dec, 2016 Elbow tendinitis M77.8 [facility] [address] [address] Dec, Anxiety F41.9 [facility] [address] [place] [address] Sep, Chronic hepatitis C without hepatic coma B18.2 [facility] [address] [place] [id number] Mar, Anxiety F41.9 [facility] [id number] [place] [address] Feb, [facility] [id number] [place] [address] Jan, [facility] [id number] [place] [address] Jan, [facility] [id number] [place] [address] Dec, Dental caries K02.9 [facility] [id number] [place] [id number] Dec, [facility] [id number] [place] [address] Dec, [facility] [id number] [place] [address] Dec, Dental examination Z01.20 [facility] [id number] [place] [address] Nov, [facility] [id number] [place] [address] Oct, Anxiety F41.9 [facility] [id number] [place] [address] Sep, [facility] [id number] [place] [address] Aug, Abscess of buttock, right L02.31 [facility] [id number] [place] [address] July, Abscess of buttock, right L02.31 [facility] [address] [address] Feb, Anxiety F41.9 [facility] [id number] [place] [address] Jan, Mood disorder F39 [facility] [id number] [place] [address] Jan, Mood disorder F39 and Rib contusion, right, subsequent encounter S20.211D [facility] [address] [place] [id number] Jan, Anxiety F41.9 and Contusion, chest wall, right, initial encounter S20.211A [facility] [id number] [place] [address] Dec, [facility] [id number] [place] [address] Oct, Anxiety 300.00 [facility] [id number] [place] [address] Sep, Depression 311 [facility] [id number] [place] [address] Jun, [facility] [id number] [place] [address] Jun, [facility] [address] [place] [address] May, [facility] [id number] [place] [address] May, [facility] [id number] [place] [address] Apr, [facility] [id number] [place] [address] Apr, [facility] [address] [place] [address] Apr, [facility] [place] [facility] [address] [id number] [place] [address] Apr, [facility] [place] [facility] [address] [id number] [place] [address] Mar, [facility] [place] [facility] [address] [id number] [place] [address] Mar, [facility] [place] [facility] [address] [id number] [place] [address] Mar, [facility] [place] [facility] [address] [id number] [place] [address] Mar, [facility] [place] [facility] [address] [id number] [place] [address] Nov, [facility] [place] [facility] [address] [id number] [place] [address] Nov, [facility] [place] [facility] [address] [id number] [place] [address] Nov, [facility] [place] [facility] [address] [id number] [place] [address] Nov, [facility] [place] [facility] [address] [id number] [place] [address] Oct, [facility] [place] [facility] [address] [id number] [place] [address] Oct, [facility] [place] [facility] [address] [id number] [place] [address] Oct, [facility] [place] [facility] [address] [id number] [place] [address] Oct, [facility] [place] [facility] [address] [id number] [place] [address] Oct, [facility] [place] [facility] [address] [id number] [place] [address] Oct, [facility] [place] [facility] [address] [id number] [address] Nov, [facility] [address] [address] Jun, [facility] [id number] [address] Jun, [facility] [address] [address] Apr, [facility] [address] [address] Jan, [facility] [address] [address] Jan, [facility] [address] [address] Jun, [facility] [address] [address] Jun, [facility] [address] [address] Mar, [facility] [address] [address] Mar, [facility] [address] [address] Mar, [facility] [id number] [address] May, IMMUNIZATIONS No Known Immunizations SOCIAL HISTORY Never Assessed REASON FOR VISIT Right arm/elbow pain. Was seen 01/07/2017 in [facility], pain has gotten worse. KBMegan PLAN OF CARE Activity Details Follow Up as scheduled with Shree Rhoades APRN Reason: VITAL SIGNS Height 71 in 2017-02-25 Weight 177.6 lbs 2017-02-25 Temperature 98.2 degrees Fahrenheit 2017-02-25 Heart Rate 88 bpm 2017-02-25 Respiratory Rate 20 2017-02-25 BMI 24.77 kg/m2 2017-02-25 Blood pressure systolic 114 mmHg 2017-02-25 Blood pressure diastolic 80 mmHg 2017-02-25 MEDICATIONS Medication Instructions Dosage Frequency Start Date End Date Duration Status Ativan 1 MG Orally 3 times a day 1 tablet as needed 8h Feb, 28 days Not-Taking PredniSONE 20 MG Orally Once a day 2 tablet 24h Feb, Feb, 5 days Active Tylenol Active Naproxen Active Risperdal 0.5 MG Orally twice a day 1 tablet 12h 10 Mar, 2016 30 day(s) Not-Taking RESULTS No Results PROCEDURES No Known procedures INSTRUCTIONS MEDICATIONS ADMINISTERED No Known Medications MEDICAL (GENERAL) HISTORY Type Description Date Medical History carpal tunnel Medical History hemorrhoids Medical History depression Medical History HPV Medical History Cannabis abuse Medical History Alcohol abuse Surgical History appendectomy Surgical History Shattered jaw repaired 18 yoa Hospitalization History surgery
--- OUTSIDE RECORDS SUMMARY | 2018-09-26 20:27 | XMS REPORT ---
Author Author ANGY GILL Organization [facility] Address [address] [place] [address] Care Team Providers Care Pharm Tech Name Role Phone ANGY GILL Unavailable PROBLEMS Type Condition ICD9-CM Code [id number] Code Onset Dates Condition Status SNOMED Code Problem Chronic hepatitis C without hepatic coma B18.2 Active 739095118 Problem HPV (human papilloma virus) anogenital infection A63.0 Active 520407399 Problem Mood disorder F39 Active 29949202 Problem Carpal tunnel syndrome, right upper limb G56.01 Active 61845558 Problem Anxiety F41.9 Active 46128961 ALLERGIES No Known Allergies ENCOUNTERS Encounter Location Date Diagnosis [facility] [address] [address] 15 Apr, 2017 Lateral epicondylitis, right elbow M77.11 [facility] [address] [address] 11 Mar, 2017 Lateral epicondylitis, right elbow M77.11 [facility] [id number] [place] [address] 04 Feb, 2017 Elbow tendinitis M77.8 [facility] [id number] [place] [address] Jan, Pneumonia of right lower lobe due to infectious organism J18.1 [facility] [id number] [place] [address] Dec, Elbow tendinitis M77.8 [facility] [id number] [place] [address] Dec, Anxiety F41.9 [facility] [address] [place] [address] Sep, Chronic hepatitis C without hepatic coma B18.2 [facility] [address] [place] [id number] Mar, Anxiety F41.9 [facility] [id number] [place] [address] Feb, [facility] [id number] [place] [address] Jan, [facility] [id number] [place] [address] Jan, [facility] [id number] [place] [address] Dec, Dental caries K02.9 [facility] [id number] [place] [id number] Dec, [facility] [id number] [place] [address] Dec, [facility] [id number] [place] [address] Dec, Dental examination Z01.20 [facility] [id number] [place] [address] Nov, [facility] [id number] [place] [address] Oct, Anxiety F41.9 [facility] [id number] [place] [address] Sep, [facility] [id number] [place] [address] Aug, Abscess of buttock, right L02.31 [facility] [id number] [place] [address] July, Abscess of buttock, right L02.31 [facility] [id number] [place] [address] Feb, Anxiety F41.9 [facility] [address] [address] Jan, Mood disorder F39 [facility] [id number] [place] [address] Jan, Mood disorder F39 and Rib contusion, right, subsequent encounter S20.211D [facility] [address] [place] [id number] Jan, Anxiety F41.9 and Contusion, chest wall, right, initial encounter S20.211A [facility] [address] [address] Dec, [facility] [id number] [place] [address] Oct, Anxiety 300.00 [facility] [id number] [place] [address] Sep, Depression 311 [facility] [id number] [place] [address] Jun, [facility] [id number] [place] [address] Jun, [facility] [id number] [place] [address] May, [facility] [address] [address] May, [facility] [address] [address] Apr, [facility] [address] [address] Apr, [facility] [address] [address] Apr, [facility] [address] [address] Apr, [facility] [id number] [place] [address] Mar, [facility] [place] [facility] [address] [id number] [place] [address] Mar, [facility] [place] [facility] [address] [id number] [place] [address] Mar, [facility] [place] [facility] [address] [id number] [place] [address] Mar, [facility] [place] [facility] [address] [id number] [place] [address] Nov, [facility] [place] [facility] [address] [id number] [place] [address] Nov, [facility] [place] [facility] [address] [id number] [place] [address] Nov, [facility] [place] [facility] [address] [id number] [place] [address] Nov, [facility] [place] [facility] [address] [id number] [place] [address] Oct, [facility] [place] [facility] [address] [id number] [place] [address] Oct, [facility] [place] [facility] [address] [id number] [place] [address] Oct, [facility] [place] [facility] [address] [id number] [place] [address] Oct, [facility] [place] [facility] [address] [id number] [place] [address] Oct, [facility] [place] [facility] [address] [id number] [place] [address] Oct, [facility] [place] [facility] [address] [id number] [place] [address] Nov, [facility] [place] [facility] [address] [id number] [place] [address] Jun, [facility] [id number] [address] Jun, [facility] [address] [address] Apr, [facility] [address] [address] Jan, [facility] [address] [place] [address] Jan, [facility] [address] [address] Jun, [facility] [address] [address] Jun, [facility] [address] [address] Mar, [facility] [address] [address] Mar, [facility] [address] [address] Mar, [facility] [id number] [address] May, IMMUNIZATIONS No Known Immunizations SOCIAL HISTORY Never Assessed REASON FOR VISIT depression - Pt states he is here for a check up. Has been incarcerated and wa nts to make sure Pavel is still his PCP. Has some other things he would like to discuss with only Pavel Beasley MA PLAN OF CARE VITAL SIGNS Height 71 in 2016-10-08 Weight 186.6 lbs 2016-10-08 Temperature 98.5 degrees Fahrenheit 2016-10-08 Heart Rate 84 bpm 2016-10-08 Respiratory Rate 18 2016-10-08 BMI 26.02 kg/m2 2016-10-08 Blood pressure systolic 122 mmHg 2016-10-08 Blood pressure diastolic 70 mmHg 2016-10-08 MEDICATIONS Unknown Medications RESULTS Name Result Date Reference Range CBC 2016-10-08 WBC 5.6 3.4-10.8 RBC 4.80 4.14-5.80 Hemoglobin 14.8 12.6-17.7 Hematocrit 43.9 37.5-51.0 MCV 92 79-97 MCH 30.8 26.6-33.0 MCHC 33.7 31.5-35.7 RDW 13.6 12.3-15.4 Platelets 222 150-379 Neutrophils 55 Lymphs 32 Monocytes 8 Eos 4 Basos 0 Neutrophils (Absolute) 3.1 1.4-7.0 Lymphs (Absolute) 1.8 0.7-3.1 Monocytes(Absolute) 0.4 0.1-0.9 Eos (Absolute) 0.2 0.0-0.4 Baso (Absolute) 0.0 0.0-0.2 Immature Granulocytes 1 Immature Grans (Abs) 0.0 0.0-0.1 CMP 2016-10-08 Glucose, Serum 74 65-99 BUN 15 6-20 Creatinine, Serum 1.04 0.76-1.27 eGFR If NonAfricn Am 93 >59 eGFR If Africn Am 107 >59 BUN/Creatinine Ratio 14 9-20 Sodium, Serum 139 134-144 Potassium, Serum 5.0 3.5-5.2 Chloride, Serum 99 96-106 Carbon Dioxide, Total 21 18-29 Calcium, Serum 9.3 8.7-10.2 Protein, Total, Serum 7.2 6.0-8.5 Albumin, Serum 4.4 3.5-5.5 Globulin, Total 2.8 1.5-4.5 A/G Ratio 1.6 1.2-2.2 Bilirubin, Total 0.6 0.0-1.2 Alkaline Phosphatase, S 54 39-117 AST (SGOT) 30 0-40 ALT (SGPT) 51 0-44 HEP C ANTIBODY (STATE) 2016-10-08 RESULTS reactive HIV (STATE) 2016-10-08 HEP B SURFACE ANTIGEN (STATE) 2016-10-08 HEP B ANTIBODY non reactive HEP B ANTIBODY (RML) HEP B ANTIBODY (STATE) PROCEDURES Procedure Date Ordered Result Body Site [facility] October 08, 2016 VENIPUNCT, ROUTINE* October 08, 2016 No Charge October 08, 2016 INSTRUCTIONS MEDICATIONS ADMINISTERED No Known Medications MEDICAL (GENERAL) HISTORY Type Description Date Medical History carpal tunnel Medical History hemorrhoids Medical History depression Medical History HPV Medical History Cannabis abuse Medical History Alcohol abuse Surgical History appendectomy Surgical History Shattered jaw repaired 18 yoa Hospitalization History surgery
--- OUTSIDE RECORDS SUMMARY | 2018-09-26 20:27 | XMS REPORT ---
Author ANGY Bryan Organization [employer] Address Unknown Phone Unavailable Care Team Providers Care Seamless Tube Drawer Name Role Phone ANGY GILL CP Unavailable Allergies, Adverse Reactions, Alerts Substance Reaction Event Type N.K.D.A. Info Not Available Non Drug Allergy Problems Problem Type Condition Code Onset Dates Condition Status Assessment Rib contusion, right, subsequent encounter S20.211D Active Problem Cervicalgia 723.1 Active Assessment Mood disorder F39 Active Problem Carpal tunnel syndrome 354.0 Active [...] Instructions Start Date End Date Status Dosage PredniSONE [facility] [address]-86 20 MG Orally Twice a day Feb 14, 2015 Feb 19, 2015 1 tablet with food or milk Paxil [facility] [address]-25 20 MG Orally Once a day 1 tablet in the morning BusPIRone HCl [facility] [address]-04 10 MG Orally Twice a day Feb 14, 2015 1 tablet Procedures Procedure Coding System Code Date Office Visit, Est Pt., Level 3 CPT-4 60903 Feb 14, 2015 Vital Signs Date/Time: Feb 14, 2015 Temperature 98.2 F Weight 180.1 lbs Height 71 in BMI 25.12 Index Blood Pressure Diastolic 84 mmHg Blood Pressure Systolic 128 mmHg Cardiac Monitoring Heart Rate 76 bpm Results No Known Results Summary Purpose [employer] Submission
--- OUTSIDE RECORDS SUMMARY | 2018-09-26 20:27 | XMS REPORT ---
Author Author ANGY GILL Organization [facility] Address [address] [place] [address] Care Team Providers Care Hospital Laboratory Technician Name Role Phone ANGY GILL Unavailable PROBLEMS Type Condition ICD9-CM Code PZD22-DR Code Onset Dates Condition Status SNOMED Code Problem Chronic hepatitis C without hepatic coma B18.2 Active 940888629 Problem HPV (human papilloma virus) anogenital infection A63.0 Active 277970847 Problem Mood disorder F39 Active 25858533 Problem Carpal tunnel syndrome, right upper limb G56.01 Active 45560489 Problem Anxiety F41.9 Active 01881365 ALLERGIES No Known Allergies ENCOUNTERS Encounter Location Date Diagnosis [id number] [place] [address] Jun, [address] [address] 15 Apr, 2017 Lateral epicondylitis, right elbow M77.11 [id number] [place] [address] Mar, Lateral epicondylitis, right elbow M77.11 [facility] [id number] [place] [address] 04 Feb, 2017 Elbow tendinitis M77.8 [facility] [id number] [place] [address] 15 Jan, 2017 Pneumonia of right lower lobe due to infectious organism J18.1 [facility] [id number] [place] [address] 16 Dec, 2016 Elbow tendinitis M77.8 [id number] [place] [address] Dec, Anxiety F41.9 [facility] [address], [place] [address] Sep, Chronic hepatitis C without hepatic coma B18.2 [facility] [address] [place] [id number] Mar, Anxiety F41.9 [facility] [address] [place] [address] Feb, [facility] [id number] [place] [address] Jan, [facility] [id number] [place] [address] Jan, [facility] [id number] [place] [address] Dec, Dental caries K02.9 [facility] [address] [place] [id number] Dec, [facility] [id number] [place] [address] Dec, [facility] [id number] [place] [address] Dec, Dental examination Z01.20 [facility] [id number] [place] [address] Nov, [facility] [id number] [place] [address] Oct, Anxiety F41.9 [facility] [address] [place] [address] Sep, [facility] [id number] [place] [address] Aug, Abscess of buttock, right L02.31 [facility] [address] [place] [address] July, Abscess of buttock, right L02.31 [facility] [id number] [place] [address] Feb, Anxiety F41.9 [facility] [id number] [place] [address] Jan, Mood disorder F39 [facility] [address] [place] [address] Jan, Mood disorder F39 and Rib contusion, right, subsequent encounter S20.211D [facility] [address] [facility] [id number] Jan, Anxiety F41.9 and Contusion, chest wall, right, initial encounter S20.211A [facility] [id number] [place] [address] Dec, [facility] [id number] [place] [address] Oct, Anxiety 300.00 [facility] [id number] [place] [address] Sep, Depression 311 [facility] [address] [place] [address] Jun, [facility] [id number] [place] [address] Jun, [facility] [address], [place] [address] May, [facility] [id number] [place] [address] May, [facility] [address] [place] [address] Apr, [facility] [id number] [place] [address] Apr, [facility] [address], [place] [address] Apr, [facility] [id number] [place] [address] Apr, [facility] [place] [facility] [address] [id number] [place] [address] Mar, [facility] [place] [facility] [address] [id number] [place] [address] Mar, [facility] [place] [facility] [address] [id number] [place] [address] Mar, [facility] [place] [facility] [address] [id number] [place] [address] Mar, [facility] [place] [facility] [address] [id number] [place] [address] Nov, [facility] [place] [facility] [address] [id number] [place] [address] Nov, [facility] [place] [facility] [address] [id number] [place] [address] Nov, [facility] [place] [facility] [address] [id number] [place] [address] Nov, [facility] [place] [facility] [address] [id number] [place] [address] Oct, [facility] [place] [facility] [address] [id number] [place] [address] Oct, [facility] [place] [facility] [address] [id number] [place] [address] Oct, [facility] [place] [facility] [address] [id number] [place] [address] Oct, [facility] [place] [facility] [address] [id number] [place] [address] Oct, [facility] [place] [facility] [address] [id number] [place] [address] Oct, [facility] [place] [facility] [address] [id number] [place] [address] Nov, [facility] [address] [facility] [id number] [address] Jun, [facility] [address], [place] [address] Jun, [facility] [address] [facility] [id number] [address] Apr, [facility] [address], [place] [address] Jan, [facility] [address], [place] [address] Jan, [facility] [address], [place] [address] Jun, [facility] [address], [place] [address] Jun, [facility] [address], [place] [address] Mar, [facility] [address], [place] [address] Mar, [facility] [address], [place] [address] Mar, [facility] [id number] [address] May, IMMUNIZATIONS No Known Immunizations SOCIAL HISTORY Never Assessed REASON FOR VISIT Requests return call PLAN OF CARE VITAL SIGNS MEDICATIONS Medication Instructions Dosage Frequency Start Date End Date Duration Status Ativan 1 MG Orally 3 times a day 1 tablet as needed 23 Feb, 2015 28 days Active RESULTS [...]
--- OUTSIDE RECORDS SUMMARY | 2018-09-26 20:27 | XMS REPORT ---
Author Author ANGY GILL Organization [employer] Address Unknown Phone Unavailable Care Team Providers Care Adjutant General Name Role Phone ANGY GILL CP Unavailable Allergies No Known Allergies Problems Problem Type Condition Code Onset Dates Condition Status Problem Carpal tunnel syndrome, right upper limb G56.01 Active Problem HPV (human papilloma virus) anogenital infection A63.0 Active Problem Mood disorder F39 Active Problem Anxiety F41.9 Active Medications Medication Code System Code Instructions Start Date End Date [facility] [address] 1 MG Orally 2 times a day. Mar 16, 2015 1 tablet as needed Results No Known Results Summary Purpose [employer] Submission
--- OUTSIDE RECORDS SUMMARY | 2018-09-26 20:27 | XMS REPORT ---
Author ANGY Bryan Organization [employer] Address Unknown Phone Unavailable Care Team Providers Care Diesel Plant Operator Name Role Phone ANGY GILL CP Unavailable Allergies No Known Allergies Problems Problem Type Condition Code Onset Dates Condition Status Assessment Contusion, chest wall, right, initial encounter S20.211A Active Problem Cervicalgia 723.1 Active Assessment Anxiety F41.9 Active Problem Carpal tunnel syndrome 354.0 Active [...] Nondependent cannabis abuse, unspecified 305.20 Active Medications No Known Medications Procedures Procedure Coding System Code Date Office Visit, Est Pt., Level 2 CPT-4 46178 Jan 25, 2015 Vital Signs Date/Time: Jan 25, 2015 Cardiac Monitoring Heart Rate 72 bpm Weight 166 lbs Height 71 in BMI 23.15 Index Blood Pressure Diastolic 64 mmHg Blood Pressure Systolic 110 mmHg Results No Known Results Summary Purpose [employer] Submission
--- OUTSIDE RECORDS SUMMARY | 2018-09-26 20:27 | XMS REPORT ---
Author Author ANGY GILL Organization [employer] Address Unknown Phone Unavailable Care Team Providers Care Continuous Improvement Black Belt Name Role Phone ANGY GILL CP Unavailable Allergies No Known Allergies Problems Problem Type Condition Code Onset Dates Condition Status Problem Cervicalgia 723.1 Active Assessment Mood disorder [...] Medications Procedures Procedure Coding System Code Date CHEST X-RAY CPT-4 02812 Feb 15, 2015 Results No Known Results Summary Purpose [employer] Submission
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
[2018-09-26] MEDS ORDERED: LORA-405 SL (20:29)
--- NOTE | 2018-09-26 20:58 | Diagnostic Imaging Report ---
INDICATION: Fell down porch steps, left ankle pain and swelling. FINDINGS: Three views of the left ankle demonstrate an old avulsion fracture off of the lateral malleolus. No acute fractures are present. There is no joint effusion. Previous calcaneal fracture is healed. IMPRESSION: There are no acute findings. Dictated by: Dictated on workstation # [id number]
[2018-09-26] MEDS ORDERED: RX-HYDROCODONE/APAP 5/325 MG #4 TAB PK PO PRN (21:30)
[2018-09-26 21:35] VITALS: BP 120/70
== END 2018-09-26 21:37 | disposition home or self-care (01) ==
LOC: EDUNIT# 20:15 → ER 20:17
DX: S93.402A Sprain of unspecified ligament of left ankle, initial encounter (principal); Z90.49 Acquired absence of other specified parts of digestive tract; W10.9XXA Fall (on) (from) unspecified stairs and steps, initial encounter; Y93.01 Activity, walking, marching and hiking
CPT/HCPCS: 73610

== ENCOUNTER 2018-10-19 20:02 | Emergency (ER) | payer SELFPAY ==
[~2018-10-19] VITALS: Ht 180.3 cm; Wt 81.6 kg
[~2018-10-19 20:02] MED LIST changes: +LORA-405 SL
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
--- OUTSIDE RECORDS SUMMARY | 2018-10-19 20:09 | XMS REPORT | Clinical Summary ---
Author Author [facility] Organization [facility] Address Unknown Phone Unavailable Care Team Providers Care Waste/Materials Exchange Specialist Name Role Phone Paul Rhoades APRN PCP Source Comments Some departments are not documenting in the electronic medical record. If you d o not see the information that you expected, contact Release of Information in [facility] [employer] Information Management department at [phone] for further assistan ce in locating additional records.[facility] Allergies No Known Allergies Medications No known medications Active Problems Not on file Encounters Care Team Description Date Type Specialty Aristides Massey MD 10/10/2018 Hospital Radiology Encounter Aristides Massey MD Injury of right foot, initial encounter (Primary Dx); Closed displaced fracture of right calcaneus, unspecified portion of calcaneus, initial encounter 10/10/2018 Office Visit Sports Medicine Aristides Massey MD Injury of right foot, initial encounter (Primary Dx) 10/02/2018 Orders Only Sports Medicine 09/26/2018 Hospital Radiology Encounter 09/10/2018 Hospital Radiology Encounter from Last 3 Months Family History Relation Name Status Comments Mother Alive Social History Date Tobacco Use Types Packs/Day Years Used Current Every Day Smoker Cigarettes Smokeless Tobacco: Never Used Drinks/Week oz/Week Comments Alcohol Use Yes Sex Assigned at Date Recorded Not on file Industry Job Start Date Occupation Not on file Not on file Not on file Travel End Travel History Travel Start No recent travel history available. Last Filed Vital Signs Reading Time Taken Comments Vital Sign - - Blood Pressure - - Pulse - - Temperature - - Respiratory Rate - - Oxygen Saturation - - Inhaled Oxygen Concentration 81.6 kg (180 lb) 10/10/2018 10:19 AM CDT Weight 180.3 cm (5' 11") 10/10/2018 10:19 AM CDT Height 25.1 10/10/2018 10:19 AM CDT Body Mass Index Plan of Treatment Health Maintenance Due Date Last Done Comments PHYSICAL (COMPREHENSIVE) 11/02/1987 EXAM HIV SCREENING 11/02/1995 DTAP/TDAP VACCINES ( - 1998 Tdap) INFLUENZA VACCINE 12/23/2018 Procedures Comments Procedure Name Priority Date/Time Associated Diagnosis CALCANEUS MIN 2 VIEWS Routine 10/10/2018 Injury of right foot, RIGHT 10:33 AM CDT initial encounter FOOT COMP MIN 3 VIEWS Routine 10/10/2018 Injury of right foot, RIGHT 10:33 AM CDT initial encounter GENERAL RAD LOWER EXT Routine 09/26/2018 EXTERNAL IMAGING 12:[address] LOWER EXT EXTERNAL Routine 09/10/2018 IMAGING 12:00 AM CDT from Last 3 Months Results * FOOT COMP MIN 3 VIEWS RIGHT (10/10/2018 10:33 AM CDT) Specimen Right Impressions Performed At Findings/Impression: [facility] RESULTS [...] Address City/State/Zipcode Phone Number [facility] RESULTS * CALCANEUS MIN 2 VIEWS RIGHT (10/10/2018 [...] Address City/State/Zipcode Phone Number [facility] RESULTS * GENERAL RAD LOWER EXT EXTERNAL IMAGING (09/26/2018 12:00 AM CDT) Specimen Narrative Performed At This order has been auto finalized and does not contain a result. * CT LOWER EXT EXTERNAL IMAGING (09/10/2018 12:00 AM CDT) Specimen Narrative Performed At This order has been auto finalized and does not contain a result. from Last 3 Months Advance Directives Patient Bolt Cutter Explanation Type Date Recorded Advance Directive/DPOA
--- OUTSIDE RECORDS SUMMARY | 2018-10-19 20:09 | XMS REPORT | Encounter Summary ---
Author Author [facility] Organization [facility] Address Unknown Phone Unavailable Care Team Providers Care Haulage Boss Name Role Phone RhoadesPaul lopez BENSON PCP Encounter Details Care Team Description [place] [address] [address] [place], [place] [id number] 10/10/2018 [facility] [address] [place], [place] [address] Social History Date Tobacco Use Types Packs/Day Years Used Current Every Day Smoker Cigarettes Smokeless Tobacco: Never Used Drinks/Week oz/Week Comments Alcohol Use Yes Sex Assigned at Date Recorded Not on file Industry Job Start Date Occupation Not on file Not on file Not on file Travel End Travel History Travel Start No recent travel history available. documented as of this encounter Plan of Treatment Order Schedule Name Type Priority Associated Diagnoses 1 Occurrences starting 10/10/2018 until 10/10/2018 ANKLE MIN 3 VIEWS RIGHT Imaging Routine Injury of right foot, initial encounter documented as of this encounter Procedures Comments Procedure Name Priority Date/Time Associated Diagnosis FOOT COMP MIN 3 VIEWS Routine 10/10/2018 Injury of right foot, RIGHT 10:33 AM CDT initial encounter CALCANEUS MIN 2 VIEWS Routine 10/10/2018 Injury of right foot, RIGHT 10:33 AM CDT initial encounter documented in this encounter Results * CALCANEUS MIN 2 [...] City/State/Zipcode Phone Number [facility] RESULTS * FOOT COMP MIN 3 VIEWS RIGHT [...] Diagnosis Injury of right foot, initial encounter documented in this encounter
--- OUTSIDE RECORDS SUMMARY | 2018-10-19 20:10 | XMS REPORT ---
Author Author ANGY GILL Organization [facility] Address [address] [place] [address] Care Team Providers Care Biology Internship Name Role Phone ANGY GILL Unavailable PROBLEMS Type Condition ICD9-CM Code RHO37-QV Code Onset Dates Condition Status SNOMED Code Problem Chronic hepatitis C without hepatic coma B18.2 Active 266172393 Problem Erectile dysfunction, unspecified erectile dysfunction type N52.9 Active 480190835 Problem Mood disorder F39 Active 52709846 Problem Anxiety F41.9 Active 61984858 Problem Carpal tunnel syndrome, right upper limb G56.01 Active 82415900 Problem HPV (human papilloma virus) anogenital infection A63.0 Active 883571528 ALLERGIES No Information ENCOUNTERS Encounter Location Date Diagnosis [facility] [id number] [place] [phone] Oct, [facility] [address] [address] Sep, [facility] [id number] [place] [phone] Sep, [facility] [id number] [place] [phone] Aug, Closed displaced fracture of right calcaneus, unspecified portion of calcaneus, initial encounter S92.001A [facility] [id number] [place] [phone] Aug, [facility] [id number] [place] [phone] Aug, Mood disorder F39 [facility] [id number] [place] [phone] Aug, Closed nondisplaced fracture of right calcaneus, unspecified portion of calcaneus, initial encounter S92.001A [facility] [id number] [place] [phone] 17 Aug, 2018 [facility] [id number] [place] [phone] 17 Aug, 2018 Sprain of other ligament of right ankle, initial encounter S93.491A [facility] [id number] [place] [id number] Aug, Sprain of other ligament of right ankle, initial encounter S93.491A [facility] [id number] [place] [phone] 04 Aug, 2018 Mood disorder F39 [facility] [id number] [place] [phone] July, Mood disorder F39 [facility] [id number] [place] [phone] July, Mood disorder F39 [facility] [address] [place] [id number] Jun, Mood disorder F39 [facility] [id number] [place] [phone] May, [facility] [id number] [place] [phone] Feb, [facility] [id number] [place] [address] Jan, Anxiety F41.9 [facility] [id number] [place] [address] Jan, Anxiety F41.9 [facility] [id number] [place] [address] Jan, Anxiety F41.9 ; Chronic hepatitis C without hepatic coma B18.2 and Erectile dysfunction, unspecified erectile dysfunction type N52.9 [facility] [id number] [place] [address] Dec, Anxiety F41.9 [facility] [id number] [place] [address] Sep, Lateral epicondylitis, right elbow M77.11 [facility] [id number] [place] [id number] Aug, [facility] [id number] [place] [phone] Jun, [facility] [id number] [place] [phone] Apr, Lateral epicondylitis, right elbow M77.11 [facility] [id number] [place] [phone] Mar, Lateral epicondylitis, right elbow M77.11 [facility] [id number] [place] [phone] Feb, Elbow tendinitis M77.8 [facility] [id number] [place] [phone] Jan, Pneumonia of right lower lobe due to infectious organism J18.1 [facility] [id number] [place] [address] Dec, Elbow tendinitis M77.8 [facility] [id number] [place] [address] Dec, Anxiety F41.9 [facility] [id number] [place] [phone] Sep, Chronic hepatitis C without hepatic coma B18.2 [facility] [address] [id number] Mar, Anxiety F41.9 [facility] [id number] [place] [phone] Feb, [facility] [id number] [place] [phone] Jan, [facility] [address] [place] [phone] Jan, [facility] [id number] [place] [address] Dec, Dental caries K02.9 [facility] [id number] [place] [id number] Dec, [facility] [id number] [place] [phone] Dec, [facility] [id number] [place] [address] Dec, Dental examination Z01.20 [facility] [id number] [place] [address] Nov, [facility] [id number] [place] [address] Oct, Anxiety F41.9 [facility] [id number] [place] [phone] Sep, [facility] [id number] [place] [address] Aug, Abscess of buttock, right L02.31 [facility] [id number] [place] [phone] July, Abscess of buttock, right L02.31 [facility] [address] [place] [address] Feb, Anxiety F41.9 [facility] [id number] [place] [phone] Jan, Mood disorder F39 [facility] [id number] [place] [address] Jan, Mood disorder F39 and Rib contusion, right, subsequent encounter S20.211D [facility] [address] [id number] Jan, Anxiety F41.9 and Contusion, chest wall, right, initial encounter S20.211A [facility] [id number] [place] [phone] Dec, [facility] [id number] [place] [address] Oct, Anxiety 300.00 [facility] [id number] [place] [phone] Sep, Depression 311 [facility] [id number] [place] [phone] Jun, [facility] [id number] [place] [phone] Jun, [facility] [id number] [place] [phone] May, [facility] [id number] [place] [phone] May, [facility] [id number] [place] [phone] Apr, [facility] [id number] [place] [phone] Apr, [facility] [id number] [place] [phone] Apr, [facility] [id number] [place] [phone] Apr, [facility] [address] [place] [phone] Mar, [facility] [id number] [place] [phone] Mar, [facility] [address] [address] Mar, [facility] [id number] [place] [phone] Mar, [facility] [place] [facility] [address] [id number] [place] [address] Nov, [facility] [place] [facility] [address] [id number] [place] [address] Nov, [facility] [place] [facility] [address] [id number] [place] [address] Nov, [facility] [place] [facility] [address] [id number] [place] [address] Nov, [facility] [place] [facility] [address] [id number] [place] [address] Oct, [facility] [place] [facility] [address] [id number] [place] [address] Oct, [facility] [place] [facility] [address] [id number] [place] [address] Oct, [facility] [place] [facility] [address] [id number] [place] [address] Oct, [facility] [place] [facility] [address] [id number] [place] [address] Oct, [facility] [place] [facility] [address] [id number] [place] [address] Oct, [facility] [place] [facility] [address] [id number] [place] [address] Nov, [facility] [place] [facility] [address] [id number] [place] [address] Jun, [facility] [place] [facility] [address] [id number] [place] [address] Jun, [facility] [place] [facility] [address] [id number] [place] [address] Apr, [facility] [place] [facility] [address] [id number] [place] [address] Jan, [facility] [place] [facility] [address] [facility] [id number] [place] [address] Jan, [facility] [address] [facility] [id number] [address] Jun, [facility] [id number] [address] Jun, [facility] [address] [facility] [id number] [place] [address] Mar, [facility] [address] [facility] [id number] [place] [address] Mar, [facility] [id number] [address] Mar, [facility] [address] [facility] [id number] [place] [address] May, IMMUNIZATIONS No Known Immunizations SOCIAL HISTORY Never Assessed REASON FOR VISIT PLAN OF CARE VITAL SIGNS Height 71 in 2014-06-07 Weight 170 lbs 2014-06-07 Temperature 98.6 degrees Fahrenheit 2014-06-07 Heart Rate 98 bpm 2014-06-07 Respiratory Rate 20 2014-06-07 Blood pressure systolic 118 mmHg 2014-06-07 Blood pressure diastolic 72 mmHg 2014-06-07 MEDICATIONS Unknown Medications RESULTS No Results PROCEDURES Procedure Date Ordered Result Body Site DRUG SCREEN, QUALITATE/MULTI June 07, 2014 INSTRUCTIONS MEDICATIONS ADMINISTERED No Known Medications MEDICAL (GENERAL) HISTORY Type Description Date Medical History carpal tunnel Medical History hemorrhoids Medical History depression Medical History HPV Medical History Cannabis abuse Medical History Alcohol abuse Surgical History appendectomy Surgical History Shattered jaw repaired 18 yoa Hospitalization History surgery
--- OUTSIDE RECORDS SUMMARY | 2018-10-19 20:10 | XMS REPORT ---
Author Author BRENDA WINSLOW [facility] Address [address] [place] [address] Care Team Providers Care Scenic Artist Name Role Phone BRENDA WINSLOW Unavailable PROBLEMS Type Condition ICD9-CM Code [id number] Code Onset Dates Condition Status SNOMED Code Problem Chronic hepatitis C without hepatic coma B18.2 Active 874383449 Problem Erectile dysfunction, unspecified erectile dysfunction type N52.9 Active 551566568 Problem Mood disorder F39 Active 17128106 Problem Anxiety F41.9 Active 09872391 Problem Carpal tunnel syndrome, right upper limb G56.01 Active 87259250 Problem HPV (human papilloma virus) anogenital infection A63.0 Active 493552500 ALLERGIES No Information ENCOUNTERS Encounter Location Date Diagnosis [facility] [address] [place] [id number] Oct, [facility] [id number] [place] [address] Sep, [facility] [id number] [place] [address] Sep, [facility] [id number] [place] [address] Aug, Closed displaced fracture of right calcaneus, unspecified portion of calcaneus, initial encounter S92.001A [facility] [address] [place] [address] Aug, [facility] [id number] [place] [address] Aug, Mood disorder F39 [facility] [id number] [place] [address] Aug, Closed nondisplaced fracture of right calcaneus, unspecified portion of calcaneus, initial encounter S92.001A [facility] [address] [place] [address] Aug, [facility] [id number] [place] [address] 17 Aug, 2018 Sprain of other ligament of right ankle, initial encounter S93.491A [facility] [id number] [place] [address] 17 Aug, 2018 Sprain of other ligament of right ankle, initial encounter S93.491A [facility] [id number] [place] [address] 04 Aug, 2018 Mood disorder F39 [facility] [id number] [place] [address] July, Mood disorder F39 [facility] [id number] [place] [address] July, Mood disorder F39 [facility] [address] [place] [id number] Jun, Mood disorder F39 [facility] [id number] [place] [address] May, [facility] [id number] [place] [address] Feb, [facility] [id number] [place] [address] Jan, Anxiety F41.9 [facility] [id number] [place] [address] Jan, Anxiety F41.9 [facility] [id number] [place] [address] Jan, Anxiety F41.9 ; Chronic hepatitis C without hepatic coma B18.2 and Erectile dysfunction, unspecified erectile dysfunction type N52.9 [facility] [id number] [place] [address] Dec, Anxiety F41.9 [facility] [id number] [place] [address] Sep, Lateral epicondylitis, right elbow M77.11 [facility] [id number] [place] [address] Aug, [facility] [address] [address] Jun, [facility] [id number] [place] [address] Apr, Lateral epicondylitis, right elbow M77.11 [facility] [id number] [place] [address] Mar, Lateral epicondylitis, right elbow M77.11 [facility] [id number] [place] [address] Feb, Elbow tendinitis M77.8 [facility] [id number] [place] [address] Jan, Pneumonia of right lower lobe due to infectious organism J18.1 [facility] [id number] [place] [address] 16 Dec, 2016 Elbow tendinitis M77.8 [facility] [id number] [place] [address] Dec, Anxiety F41.9 [facility] [id number] [place] [address] Sep, Chronic hepatitis C without hepatic coma B18.2 [facility] [address] [id number] Mar, Anxiety F41.9 [facility] [id number] [place] [address] Feb, [facility] [id number] [place] [address] Jan, [facility] [id number] [place] [address] Jan, [facility] [id number] [place] [address] Dec, Dental caries K02.9 [facility] [place] [facility] [id number] [place] [id number] Dec, [facility] [id number] [place] [address] Dec, [facility] [id number] [place] [address] Dec, Dental examination Z01.20 [facility] [id number] [place] [address] Nov, [facility] [id number] [place] [address] Oct, Anxiety F41.9 [facility] [id number] [place] [address] Sep, [facility] [id number] [place] [address] Aug, Abscess of buttock, right L02.31 [facility] [id number] [place] [address] July, Abscess of buttock, right L02.31 [facility] [id number] [place] [address] Feb, Anxiety F41.9 [facility] [id number] [place] [address] Jan, Mood disorder F39 [facility] [address] [place] [address] Jan, Mood disorder F39 and Rib contusion, right, subsequent encounter S20.211D [facility] [address] [place] [id number] Jan, Anxiety F41.9 and Contusion, chest wall, right, initial encounter S20.211A [facility] [id number] [place] [address] Dec, [facility] [id number] [place] [address] Oct, Anxiety 300.00 [facility] [id number] [place] [address] Sep, Depression 311 [facility] [id number] [place] [address] Jun, [facility] [id number] [place] [address] Jun, [facility] [id number] [place] [address] May, [facility] [id number] [place] [address] May, [facility] [address] [place] [address] Apr, [facility] [address] [place] [address] Apr, [facility] [address] [address] Apr, [facility] [address] [place] [address] Apr, [facility] [place] [facility] [address] [address] Mar, [facility] [id number] [place] [address] Mar, [facility] [address] [address] Mar, [facility] [address] [address] [address] Mar, [facility] [place] [facility] [address] [id number] [place] [address] Nov, [facility] [place] [facility] [address] [id number] [place] [address] Nov, [facility] [place] [facility] [address] [id number] [place] [address] Nov, [facility] [place] [facility] [address] [id number] [place] [address] Nov, [facility] [place] [facility] [address] [id number] [place] [address] Oct, [facility] [place] [facility] [address] [id number] [place] [address] Oct, [facility] [place] [facility] [address] [id number] [place] [address] Oct, [facility] [place] [facility] [address] [id number] [place] [address] Oct, [facility] [place] [facility] [address] [id number] [place] [address] Oct, [facility] [place] [facility] [address] [id number] [place] [address] Oct, [facility] [place] [facility] [address] [id number] [place] [address] Nov, [facility] [place] [facility] [address] [id number] [place] [address] Jun, [facility] [place] [facility] [address] [id number] [place] [address] Jun, [facility] [place] [facility] [address] [id number] [place] [address] Apr, [facility] [place] [facility] [address] [id number] [place] [address] Jan, [facility] [address] [facility] [id number] [address] 13 Jan, 2012 [facility] [id number] [address] Jun, [facility] [id number] [address] Jun, [facility] [id number] [address] Mar, [facility] [id number] [address] Mar, [facility] [id number] [address] Mar, [facility] [id number] [address] May, IMMUNIZATIONS No Known Immunizations SOCIAL HISTORY Never Assessed REASON FOR VISIT PLAN OF CARE VITAL SIGNS MEDICATIONS Unknown Medications RESULTS No Results PROCEDURES Procedure Date Ordered Result Body Site VISIT Apr 22, 2014 INSTRUCTIONS MEDICATIONS ADMINISTERED No Known Medications MEDICAL (GENERAL) HISTORY Type Description Date Medical History carpal tunnel Medical History hemorrhoids Medical History depression Medical History HPV Medical History Cannabis abuse Medical History Alcohol abuse Surgical History appendectomy Surgical History Shattered jaw repaired 18 yoa Hospitalization History surgery
--- OUTSIDE RECORDS SUMMARY | 2018-10-19 20:10 | XMS REPORT | Encounter Summary ---
Author Author [facility] Organization [facility] Address Unknown Phone Unavailable Care Team Providers Care Final Inspector Shuttle Name Role Phone RhoadesPaul lopez BENSON PCP Encounter Details Care Team Description Date Type Department 09/26/2018 Hospital [facility] [address] [address] Social History Date Tobacco Use Types Packs/Day Years Used Never Assessed Sex Assigned at Date Recorded Not on file Industry Job Start Date Occupation Not on file Not on file Not on file Travel End Travel History Travel Start No recent travel history available. documented as of this encounter Plan of Treatment Not on filedocumented as of this encounter Procedures Comments Procedure Name Priority Date/Time Associated Diagnosis GENERAL RAD LOWER EXT Routine 09/26/2018 EXTERNAL IMAGING 12:00 AM CDT documented in this encounter Results * GENERAL RAD LOWER EXT EXTERNAL IMAGING (09/26/2018 12:00 AM CDT) Specimen Narrative Performed At This order has been auto finalized and does not contain a result. documented in this encounter Visit Diagnoses Not on filedocumented in this encounter
--- OUTSIDE RECORDS SUMMARY | 2018-10-19 20:10 | XMS REPORT | Encounter Summary ---
Author Author [facility] Organization [facility] Address Unknown Phone Unavailable Care Team Providers Care Seed Analysis Laboratory Assistant Name Role Phone RhoadesPaul lopez BENSON PCP Encounter Details Care Team Description [place] [address] [place] [address] [phone] Injury of right foot, initial encounter (Primary Dx) 10/02/2018 Orders Only [facility] [address] [place] [address] Social History Date Tobacco Use Types Packs/Day Years Used Never Assessed Sex Assigned at Date Recorded Not on file Industry Job Start Date Occupation Not on file Not on file Not on file Travel End Travel History Travel Start No recent travel history available. documented as of this encounter Plan of Treatment Order Schedule Name Type Priority Associated Diagnoses Expected: 10/02/2018 (Approximate), Expires: 10/02/2019 ANKLE MIN 3 VIEWS RIGHT Imaging Routine Injury of right foot, initial encounter documented as of this encounter Results * FOOT COMP MIN 3 VIEWS [...] of right foot, initial encounter - Primary documented in this encounter
--- OUTSIDE RECORDS SUMMARY | 2018-10-19 20:10 | XMS REPORT ---
Author Author BECCA FARIA Organization [facility] Address Unknown Care Team Providers Care Coater Slate Name Role Phone BECCA FARIA Unavailable PROBLEMS Type Condition ICD9-CM Code YCL48-PG Code Onset Dates Condition Status SNOMED Code Problem Chronic hepatitis C without hepatic coma B18.2 Active 088936169 Problem Erectile dysfunction, unspecified erectile dysfunction type N52.9 Active 810108066 Problem Mood disorder F39 Active 05581939 Problem Anxiety F41.9 Active 03640115 Problem Carpal tunnel syndrome, right upper limb G56.01 Active 22184660 Problem HPV (human papilloma virus) anogenital infection A63.0 Active 807692074 ALLERGIES No Information ENCOUNTERS Encounter Location Date Diagnosis [facility] [id number] [place] [address] Oct, [facility] [id number] [place] [address] Sep, [facility] [id number] [place] [address] Sep, [facility] [id number] [place] [address] Aug, Closed displaced fracture of right calcaneus, unspecified portion of calcaneus, initial encounter S92.001A [facility] [id number] [place] [address] Aug, [facility] [id number] [place] [address] Aug, Mood disorder F39 [facility] [id number] [place] [address] Aug, Closed nondisplaced fracture of right calcaneus, unspecified portion of calcaneus, initial encounter S92.001A [facility] [id number] [place] [address] 17 Aug, 2018 [facility] [id number] [place] [address] 17 Aug, 2018 Sprain of other ligament of right ankle, initial encounter S93.491A [facility] [id number] [place] [address] Aug, Sprain of other ligament of right ankle, initial encounter S93.491A [facility] [id number] [place] [address] 04 Aug, 2018 Mood disorder F39 [facility] [id number] [place] [address] July, Mood disorder F39 [facility] [id number] [place] [address] July, Mood disorder F39 [facility] [address] [id number] Jun, Mood disorder F39 [facility] [id number] [place] [address] May, [facility] [id number] [place] [address] Feb, [facility] [id number] [place] [address] Jan, Anxiety F41.9 [facility] [id number] [place] [address] Jan, Anxiety F41.9 [facility] [id number] [place] [address] Jan, Anxiety F41.9 ; Chronic hepatitis C without hepatic coma B18.2 and Erectile dysfunction, unspecified erectile dysfunction type N52.9 [facility] [id number] [place] [address] Dec, Anxiety F41.9 [facility] [id number] [place] [address] Sep, Lateral epicondylitis, right elbow M77.11 [facility] [id number] [place] [address] Aug, [facility] [id number] [place] [address] Jun, [facility] [id number] [place] [address] Apr, Lateral epicondylitis, right elbow M77.11 [facility] [id number] [place] [address] Mar, Lateral epicondylitis, right elbow M77.11 [facility] [id number] [place] [address] Feb, Elbow tendinitis M77.8 [facility] [id number] [place] [address] Jan, Pneumonia of right lower lobe due to infectious organism J18.1 [facility] [id number] [place] [address] Dec, Elbow tendinitis M77.8 [facility] [id number] [place] [address] Dec, Anxiety F41.9 [facility] [id number] [place] [address] Sep, Chronic hepatitis C without hepatic coma B18.2 [facility] [address] [id number] Mar, Anxiety F41.9 [facility] [id number] [place] [address] Feb, [facility] [id number] [place] [address] Jan, [facility] [address] [address] Jan, [facility] [id number] [place] [address] Dec, Dental caries K02.9 [facility] [address] [place] [id number] Dec, [facility] [id number] [place] [address] Dec, [facility] [id number] [place] [address] Dec, Dental examination Z01.20 [facility] [id number] [place] [address] Nov, [facility] [id number] [place] [address] Oct, Anxiety F41.9 [facility] [id number] [place] [address] Sep, [facility] [id number] [place] [address] Aug, Abscess of buttock, right L02.31 [facility] [id number] [place] [address] July, Abscess of buttock, right L02.31 [facility] [id number] [place] [address] Feb, Anxiety F41.9 [facility] [id number] [place] [address] Jan, Mood disorder F39 [facility] [id number] [place] [address] Jan, Mood disorder F39 and Rib contusion, right, subsequent encounter S20.211D [facility] [address] [id number] Jan, Anxiety F41.9 and Contusion, chest wall, right, initial encounter S20.211A [facility] [id number] [place] [address] Dec, [facility] [id number] [place] [address] Oct, Anxiety 300.00 [facility] [id number] [place] [address] Sep, Depression 311 [facility] [id number] [place] [address] Jun, [facility] [id number] [place] [address] Jun, [facility] [id number] [place] [address] May, [facility] [id number] [place] [address] May, [facility] [id number] [place] [address] Apr, [facility] [id number] [place] [address] Apr, [facility] [address] [address] Apr, [facility] [id number] [place] [address] Apr, [facility] [address] [address] Mar, [facility] [id number] [place] [address] Mar, [facility] [address] [address] Mar, [facility] [id number] [place] [address] Mar, [facility] [place] [facility] [address] [id number] [place] [address] Nov, [facility] [place] [facility] [address] [id number] [place] [address] Nov, [facility] [place] [facility] [address] [id number] [place] [address] Nov, [facility] [place] [facility] [address] [id number] [place] [address] Nov, [facility] [place] [facility] [address] [id number] [place] [address] Oct, [facility] [place] [facility] [address] [id number] [place] [address] Oct, [facility] [place] [facility] [address] [id number] [place] [address] Oct, [facility] [place] [facility] [address] [id number] [place] [address] Oct, [facility] [place] [facility] [address] [id number] [place] [address] Oct, [facility] [place] [facility] [address] [id number] [place] [address] Oct, [facility] [place] [facility] [address] [id number] [place] [address] Nov, [facility] [place] [facility] [address] [id number] [address] Jun, [facility] [place] [facility] [address] [id number] [place] [address] Jun, [facility] [place] [facility] [address] [id number] [place] [address] Apr, [facility] [place] [facility] [address] [id number] [place] [address] Jan, [facility] [place] [facility] [address] [facility] [id number] [address] Jan, [facility] [id number] [address] Jun, [facility] [id number] [address] Jun, [facility] [address] [facility] [id number] [address] Mar, [facility] [id number] [address] Mar, [facility] [address] [facility] [id number] [address] Mar, [facility] [id number] [address] May, IMMUNIZATIONS No Known Immunizations SOCIAL HISTORY Never Assessed REASON FOR VISIT PLAN OF CARE VITAL SIGNS MEDICATIONS Unknown Medications RESULTS No Results PROCEDURES Procedure Date Ordered Result Body Site PSYCH DIAGNOSTIC EVALUATION Apr 19, 2014 INSTRUCTIONS MEDICATIONS ADMINISTERED No Known Medications MEDICAL (GENERAL) HISTORY Type Description Date Medical History carpal tunnel Medical History hemorrhoids Medical History depression Medical History HPV Medical History Cannabis abuse Medical History Alcohol abuse Surgical History appendectomy Surgical History Shattered jaw repaired 18 yoa Hospitalization History surgery
--- OUTSIDE RECORDS SUMMARY | 2018-10-19 20:10 | XMS REPORT | Encounter Summary ---
Author Author [facility] Organization [facility] Address Unknown Phone Unavailable Care Team Providers Care Bookstore Manager Name Role Phone PCP Unavailable Encounter Details Care Team Description Date Type Department 09/10/2018 Hospital [facility] [address] [id number] Social History Date Tobacco Use Types Packs/Day [...] Comments Procedure Name Priority Date/Time Associated Diagnosis CT LOWER EXT EXTERNAL Routine 09/10/2018 IMAGING 12:00 AM CDT documented in this encounter Results * CT LOWER EXT EXTERNAL IMAGING (09/10/2018 12:00 AM CDT) Specimen Narrative Performed At This order has been auto finalized and does not contain a result. documented in this encounter Visit Diagnoses Not on filedocumented in this encounter
--- OUTSIDE RECORDS SUMMARY | 2018-10-19 20:11 | XMS REPORT ---
Author Author JAMIL Verma Organization [facility] Address [address] [place] [address] Care Team Providers Care Lead Nitrate Processor Name Role Phone mianmianSOLITARIOArden JAMIL Unavailable PROBLEMS Type Condition ICD9-CM Code ELY78-YM Code Onset Dates Condition Status SNOMED Code Problem Chronic hepatitis C without hepatic coma B18.2 Active 965269344 Problem Erectile dysfunction, unspecified erectile dysfunction type N52.9 Active 765955104 Problem Mood disorder F39 Active 08689902 Problem Anxiety F41.9 Active 17512937 Problem Carpal tunnel syndrome, right upper limb G56.01 Active 67656403 Problem HPV (human papilloma virus) anogenital infection A63.0 Active 942035360 ALLERGIES No Information ENCOUNTERS Encounter Location Date Diagnosis [place] [id number] [place] [address] Aug, Closed displaced fracture of right calcaneus, unspecified portion of calcaneus, initial encounter S92.001A [place] [id number] [place] [address] Aug, [place] [id number] [place] [address] Aug, Mood disorder F39 [facility] [id number] [place] [address] Aug, Closed nondisplaced fracture of right calcaneus, unspecified portion of calcaneus, initial encounter S92.001A [facility] [id number] [place] [address] Aug, [facility] [id number] [place] [address] Aug, Sprain of other ligament of right ankle, initial encounter S93.491A [facility] [id number] [place] [address] 17 Aug, 2018 Sprain of other ligament of right ankle, initial encounter S93.491A [facility] [id number] [place] [address] 04 Aug, 2018 Mood disorder F39 [facility] [id number] [place] [address] July, Mood disorder F39 [facility] [id number] [place] [address] July, Mood disorder F39 [facility] [address] [id number] Jun, Mood disorder F39 [facility] [id number] [place] [address] May, [facility] [id number] [place] [address] Feb, [facility] [id number] [place] [address] Jan, Anxiety F41.9 [facility] [id number] [place] [address] Jan, Anxiety F41.9 [facility] [id number] [place] [address] Jan, Anxiety F41.9 ; Chronic hepatitis C without hepatic coma B18.2 and Erectile dysfunction, unspecified erectile dysfunction type N52.9 [facility] [id number] [place] [address] Dec, Anxiety F41.9 [facility] [id number] [place] [address] Sep, Lateral epicondylitis, right elbow M77.11 [facility] [id number] [place] [address] Aug, [facility] [address] [address] Jun, [facility] [id number] [place] [address] Apr, Lateral epicondylitis, right elbow M77.11 [facility] [id number] [place] [address] Mar, Lateral epicondylitis, right elbow M77.11 [facility] [id number] [place] [address] Feb, Elbow tendinitis M77.8 [facility] [id number] [place] [address] Jan, Pneumonia of right lower lobe due to infectious organism J18.1 [facility] [id number] [place] [address] Dec, Elbow tendinitis M77.8 [facility] [address] [place] [address] Dec, Anxiety F41.9 [facility] [id number] [place] [address] Sep, Chronic hepatitis C without hepatic coma B18.2 [facility] [address] [id number] Mar, Anxiety F41.9 [facility] [id number] [place] [address] Feb, [facility] [id number] [place] [address] Jan, [facility] [id number] [place] [address] Jan, [facility] [address] [address] Dec, Dental caries K02.9 [facility] [place] [facility] [id number] [id number] Dec, [facility] [id number] [place] [address] Dec, [facility] [id number] [place] [address] Dec, Dental examination Z01.20 [place] [id number] [place] [address] Nov, [facility] [id number] [place] [address] Oct, Anxiety F41.9 [place] [address] [address] Sep, [place] [id number] [place] [address] Aug, Abscess of buttock, right L02.31 [place] [id number] [place] [address] July, Abscess of buttock, right L02.31 [place] [id number] [place] [address] Feb, Anxiety F41.9 [place] [id number] [place] [address] Jan, Mood disorder F39 [place] [id number] [place] [address] Jan, Mood disorder F39 and Rib contusion, right, subsequent encounter S20.211D [facility] [address] [place] [id number] 03 Jan, 2015 Anxiety F41.9 and Contusion, chest wall, right, initial encounter S20.211A [facility] [address] [place] [address] Dec, [place] [id number] [place] [address] Oct, Anxiety 300.00 [facility] [address] [id number] [place] [address] Sep, Depression 311 [facility] [place] [facility] [address] [id number] [place] [address] 14 Jun, 2014 [facility] [place] [facility] [address] [id number] [place] [address] Jun, [facility] [place] [facility] [address] [id number] [place] [address] May, [facility] [place] [facility] [address] [id number] [place] [address] May, [facility] [place] [facility] [address] [id number] [place] [address] Apr, [facility] [place] [facility] [address] [id number] [place] [address] Apr, [facility] [place] [facility] [address] [id number] [place] [address] Apr, [facility] [place] [facility] [address] [id number] [place] [address] Apr, [facility] [place] [facility] [address] [facility] [id number] [place] [address] Mar, [facility] [place] [facility] [address] [id number] [address] Mar, [facility] [place] [facility] [address] [id number] [place] [address] Mar, [facility] [place] [facility] [address] [id number] [place] [address] Mar, [facility] [place] [facility] [address] [facility] [id number] [place] [address] Nov, [facility] [place] [facility] [address] [id number] [place] [address] Nov, [facility] [place] [facility] [address] [id number] [place] [address] Nov, [facility] [address] [id number] [place] [address] Nov, [facility] [place] [facility] [address] [id number] [place] [address] Oct, [facility] [address] [id number] [place] [address] Oct, [facility] [place] [facility] [address] [id number] [place] [address] Oct, [facility] [address] [id number] [place] [address] Oct, [facility] [address] [id number] [place] [address] Oct, [facility] [address] [id number] [place] [address] Oct, [facility] [address] [id number] [place] [address] Nov, [facility] [address] [id number] [place] [address] Jun, [facility] [address] [id number] [place] [address] Jun, [facility] [place] [facility] [address] [id number] [place] [address] Apr, [facility] [place] [facility] [address] [id number] [place] [address] Jan, [facility] [place] [facility] [address] [id number] [place] [address] Jan, [facility] [place] [facility] [address] [id number] [place] [address] Jun, [facility] [place] [facility] [address] [id number] [place] [address] Jun, [facility] [address] [facility] [id number] [place] [address] Mar, [facility] [address] [facility] [id number] [place] [address] Mar, [facility] [address] [facility] [id number] [place] [address] Mar, [facility] [address] [facility] [id number] [place] [address] May, IMMUNIZATIONS No Known Immunizations SOCIAL HISTORY Never Assessed REASON FOR VISIT PLAN OF CARE VITAL SIGNS MEDICATIONS Unknown Medications RESULTS No Results PROCEDURES Procedure Date Ordered Result Body Site PSYTX PT&/FAMILY 45 MINUTES May 10, 2014 INSTRUCTIONS MEDICATIONS ADMINISTERED No Known Medications MEDICAL (GENERAL) HISTORY Type Description Date Medical History carpal tunnel Medical History hemorrhoids Medical History depression Medical History HPV Medical History Cannabis abuse Medical History Alcohol abuse Surgical History appendectomy Surgical History Shattered jaw repaired 18 yoa Hospitalization History surgery
--- OUTSIDE RECORDS SUMMARY | 2018-10-19 20:13 | XMS REPORT | Continuity of Care Document ---
Author Organization Unknown Address Unknown Phone Unavailable Allergies Active Description Code Type Severity Reaction Onset Reported/Identified Relationship to Patient Clinical Status Yes No Known Drug Allergies [id number] Drug Allergy Unknown N/A 09/26/2018 Medications There is no data. Problems Date [...] 11/10/2008 JAMIL ORTIZ 455.6 HEMORRHOIDS NOS 11/10/2008 ANGY GILL APRN 455.6 HEMORRHOIDS NOS 11/10/2008 455.6 [...] OF SHOULDER AND UPPER ARM 06/06/2010 MADL MANAGER WINTER, LILIAN L 786.52 PAINFUL RESPIRATION 06/06/2010 MADL MANAGER WINTER, LILIAN L 840.8 SPRAIN OF OTHER SPECIFIED SITES OF SHOULDER AND UPPER ARM 06/06/2010 RUDI GILBERTF, JAMIL W 786.52 PAINFUL RESPIRATION 06/06/2010 RUDI KENTMF, JAMIL W 840.8 SPRAIN OF OTHER SPECIFIED [...] ZURITA MD N 786.2 COUGH 06/26/2010 TIMMY KNOWLES LILIAN L 465.9 UPPER RESPIRATORY INFECTION 06/26/2010 TIMMY KNOWLES LILIAN L 786.2 COUGH 06/26/2010 RUDI GILBERTF, JAMIL W 465.9 UPPER RESPIRATORY INFECTION 06/26/2010 RUDISHAHBAZ GILBERTF, JAMIL W 786.2 COUGH 06/26/2010 ANGY [...] APRN 079.4 HPV 06/27/2011 NITESH ZURITA MD 079.4 HPV 06/27/2011 NITESH ZURITA MD 079.4 [...] NEC 03/01/2013 JOYCELYN LANGLEY APRN Ot V06.1 [id number], COMBINED [ 11/19/2013 NITESH ZURITA MD N [...] JAMIL W 311 DEPRESSIVE DISORDER NOS 04/19/2014 BRIDGET KNOWLES ANGY Severiano 305.00 NONDEPENDENT ALCOHOL ABUSE UNSPECIFIED DRINKING BEHAVIOR [...] Ot F17.210 NICOTINE DEPENDENCE, CIGARETTES, UNCOMPL 07/25/2015 JERMAINE CHRISTY, JERILYN العلي Ot L02.31 CUTANEOUS ABSCESS OF BUTTOCK 07/25/2015 JERILYN DEAN MD Ot L02.31 CUTANEOUS ABSCESS OF BUTTOCK 07/25/2015 JERILYN DEAN MD Ot Z48.03 ENCOUNTER FOR CHANGE OR REMOVAL OF DRAIN 07/26/2015 JERILYN DEAN MD Ot F12.10 CANNABIS ABUSE, UNCOMPLICATED 07/26/2015 JERILYN DEAN MD T Ot F17.210 NICOTINE DEPENDENCE, CIGARETTES, UNCOMPL 07/26/2015 JERILYN DEAN MD Ot L02.31 CUTANEOUS ABSCESS OF BUTTOCK 07/26/2015 JERMAINE CHRISTY, JERILYN العلي Ot L02.31 CUTANEOUS ABSCESS OF BUTTOCK 07/26/2015 JERMAINE CHRISTY, JERILYN العلي Ot Z48.03 ENCOUNTER FOR CHANGE OR REMOVAL OF DRAIN 09/12/2018 BRIDGET ANGY Severiano GREEN Ot S92.001A UNSP FRACTURE OF RIGHT CALCANEUS, INIT F 09/12/2018 BRIDGET ANGY Severiano GREEN Ot W17.89XA OTHER FALL FROM ONE LEVEL TO ANOTHER, IN 09/26/2018 ANGY GILL Ot S92.001A UNSP FRACTURE OF RIGHT CALCANEUS, INIT F 09/26/2018 ANGY GILL Ot W17.89XA OTHER FALL FROM ONE LEVEL TO ANOTHER, IN Procedures Code [place] [address] XRAY CERVICAL SPINE, 2 OR 3 VIEWS 11/20/2013 81964 PSYTX PT&/FAMILY 45 MINUTES 05/10/2014 Results Test [...] Status Pt. Type Provider Facility Loc./Unit Complaint [id number] 09/18/2018 12:30:00 09/18/2018 23:59:59 CLS Outpatient ANGY GILL APRN [facility] [id number] 02/07/2018 15:40:00 Document Registration [id number] 07/09/2014 11:25:00 07/09/2014 23:59:59 CLS Outpatient ANGY GILL APRN [id number] 05/10/2014 10:51:00 05/10/2014 23:59:59 CLS Outpatient JAMIL ORTIZ [id number] 12/02/2013 10:57:00 12/02/2013 23:59:59 CLS Outpatient LILIAN WARNER APRN [id number] 11/20/2013 11:04:00 11/20/2013 23:59:59 CLS Outpatient NITESH ZURITA MD [id number] 11/19/2013 13:49:00 11/19/2013 23:59:59 CLS Outpatient NITESH ZURITA MD [id number] 06/27/2011 16:10:00 06/27/2011 23:59:59 CLS Outpatient ANGY GILL APRN [id number] 06/27/2011 16:10:00 06/27/2011 23:59:59 CLS Outpatient [id number] 09/26/2018 20:17:00 09/26/2018 21:37:00 DIS Emergency JOYCELYN LANGLEY APRN [facility] ER FALL/L ANKLE INJ [id number] 09/10/2018 08:42:00 09/10/2018 23:59:59 CLS Outpatient ANGY GILL MUCKER COFFERDAM [facility] RAD CLOSED NONDISPLACED FRACTURE OF R CALCANEUS [id number] 07/25/2015 20:23:00 07/25/2015 21:11:00 DIS Emergency JERMAINE CHRISTY, JERILYN العلي [facility] ER WOUND CHECK [id number] 07/24/2015 23:49:00 07/25/2015 03:09:00 DIS Emergency JERMAINE CHRISTY, JERILYN العلي [facility] ER SPIDER/INSECT BITE [id number] 03/06/2015 14:13:00 03/06/2015 14:47:00 DIS Emergency JOYCELYN LANGLEY APRN [facility] ER DENTAL PAIN;SORE THROAT [id number] 03/01/2013 17:51:00 03/01/2013 18:25:00 DIS Emergency JOYCELYN LANGLEY APRN [facility] ER
[2018-10-19] MEDS ORDERED: DOXYCYCLINE 100 MG (VIBRAMYCIN) TABLET PO STA (20:19)
[2018-10-19] MEDS ORDERED: ACETAMINOPHEN 325 MG TABLET PO STA (20:19)
[2018-10-19] MEDS ORDERED: TRIM/SULFAMETH 160/800 (SEPTRA DS) TAB PO ONE (20:30)
[2018-10-19] MEDS ORDERED: TETANUS,DIPTH,PERTUSS P/F (BOOSTRIX) 0.5 ML VIAL IM ONE (20:30)
--- NOTE | 2018-10-19 20:32 | ED Lower Extremity ---
General Chief Complaint: Skin/Wound Problems Stated Complaint: SKIN IRRITATION ON RT FOOT History of Present Illness Date Seen by Provider: Oct 19, 2018 Time Seen by Provider: 20:15 Initial Comments 37 year old male with fracture to right ankle. 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 It became more irritated. He has cleaned it in the shower with soap and water. Severity: mild Pain/Injury Location: bilateral ankle Allergies and Home Medications Allergies Coded Allergies: No Known Drug Allergies (Unverified , 09/26/18) Home Medications Doxycycline Hyclate 100 Mg Tablet, 100 MG PO BID Prescribed by: KAREN ZAVALA on 10/19/182039 Fluconazole 150 Mg Tablet, 150 MG PO DAILY Take 1 tablet today, then second tablet in 3 days. Prescribed by: KAREN ZAVALA on 10/19/182041 Lorazepam 1 Mg Tablet, 1 MG SL Q2H PRN for ANXIETY, (Reported) Sulfamethoxazole/Trimethoprim 1 Each Tablet, 1 EACH PO BID Prescribed by: JERILYN SHER on 07/25/15 025 Sulfamethoxazole/Trimethoprim 1 Each Tablet, 1 EACH PO BID Prescribed by: KAREN ZAVALA on 10/19/182039 Patient Home Medication List Home Medication List Reviewed: Yes Review of Systems Constitutional: no symptoms reported Skin: see HPI, lesions (bilat lower legs, right>left) All Other Systems Reviewed Negative Unless Noted: Yes Past Ppnokfn-Eknjpe-Ubtdcp Hx Past Med/Social Hx: Reviewed Nursing Past Med/Soc Hx Patient Social History Type Used: Cigarettes Recent Foreign Travel: No Contact w/Someone Who Travel: No Immunizations Up To Date Tetanus Booster (TDap): Unknown Past Medical History Surgeries: Yes (jaw surgery) Appendectomy, Orthopedic Respiratory: No Cardiac: No Neurological: No Genitourinary: No Gastrointestinal: No Musculoskeletal: No Endocrine: No HEENT: No Cancer: No Psychosocial: Yes Anxiety, Depression Integumentary: No Physical Exam Vital Signs Vital Signs - First Documented 10/19/18 10/19/18 20:11 20:51 Temp 99.1 Pulse 118 Resp 18 B/P (MAP) 118/67 (84) Pulse Ox 98 Capillary Refill : Height, Weight, BMI Height: 5'10.00" Weight: 185lbs. oz. 83.834459ue; 22.96 BMI Method:Stated General Appearance: WD/WN, no apparent distress Cardiovascular: normal peripheral pulses, regular rate, rhythm Respiratory: chest non-tender, lungs clear, normal breath sounds Gastrointestinal: normal bowel sounds, non tender, soft Ankles: left ankle no evidence of injury; right ankle bone tenderness, right ankle limited range of motion (secondary to fracture), right ankle pain, right ankle soft tissue tenderness, right ankle swelling; bilateral ankle other (macular papular rash with small pustules, no active drainage) Neurologic/Tendon: normal sensation, normal motor functions, normal tendon functions Neurologic/Psychiatric: no motor/sensory deficits, alert, normal mood/affect, oriented x 3 Skin: rash (bilat LE right>left) Lymphatic: no adenopathy Progress/Results/Core Measures Results/Orders My Orders Orders - KAREN ZAVALA Dipht,Pertuss(Acell),Tet Adult (Boostrix (10/19/18 20:30) Acetaminophen Tablet/Caplet (Tylenol T (10/19/18 20:19) Sulfamethoxazole/Trimet Ds Tab (Bactrim (10/19/18 20:30) Doxycycline Hyclate Tablet (Vibramycin T (10/19/18 20:19) Medications Given in ED Current Medications Medications Dose Ordered Sig/Reggie Route Start Time Stop Time Status Last Admin Dose Admin Diphtheria/ Tetanus/Acell Pertussis 0.5 ml ONCE ONCE IM 10/19/18 20:30 10/19/18 20:31 DC 10/19/18 20:35 0.5 ML Trimethoprim/ Sulfamethoxazole 1 ea ONCE ONCE PO 10/19/18 20:30 10/19/18 20:31 DC 10/19/18 20:35 1 EA Vital Signs/I&O 10/19/18 10/19/18 10/19/18 20:11 20:35 20:51 Temp 99.1 99.1 99.1 Pulse 118 90 Resp 18 18 B/P (MAP) 118/67 (84) 115/65 (82) Pulse Ox 98 Progress Progress Note : Time: 20:15 Progress Note patient seen and evaluated. Wounds cleaned to legs with peroxide and Kerlex dressing applied. Discharge instructions and return precautions reviewed with her. Departure Impression Primary Impression: Cellulitis Qualified Codes: L03.119 - Cellulitis of unspecified part of limb Disposition: 01 HOME, SELF-CARE Condition: Improved Departure-Patient Inst. Decision time for Depature: 20:35 Referrals: [facility] (PCP/Family) Primary Care Physician Patient Instructions: Cellulitis (Skin Infection), Adult (DC) Add. Discharge Instructions: Keep wounds clean and dry, clean with peroxide 3 times daily. Clean with soap and water. Follow up with your Primary Care provider in 1-2 days. Take Antibiotics as prescribed. Clean your boot with colorox wipes and leave outside in sun for 1-2 hours. Alternate between Tylenol 650 mg and ibuprofen 600 mg every 4 hours for pain or fever. Avoid itching wound, take Benadryl 25 mg every 8 hours for itching. Return to emergency department for fever greater than 101 not relieved by Tylenol or ibuprofen, increased redness or swelling to wounds, or new concerns. All discharge instructions reviewed with patient and/or family. Voiced understanding. Scripts Fluconazole (Diflucan) 150 Mg Tablet 150 MG PO DAILY, #2 TAB 0 Refills Take 1 tablet today, then second tablet in 3 days. Prov: KAREN ZAVALA 10/19/18 Sulfamethoxazole/Trimethoprim (Sulfamethoxazole-Tmp Ds Tablet) 1 Each Tablet 1 EACH PO BID, #20 TAB 0 Refills Prov: KAREN ZAVALA 10/19/18 Doxycycline Hyclate (Doxycycline Hyclate) 100 Mg Tablet 100 MG PO BID, #20 TAB 0 Refills Prov: KAREN ZAVALA 10/19/18 KAREN ZAVALA Oct 19, 2018 20:32
[2018-10-19] MEDS ORDERED: DOXY100T2 PO (20:40)
[2018-10-19] MEDS ORDERED: SULF-222 PO (20:40)
--- NOTE | 2018-10-19 20:40 | NUR ---
RIGHT CALF CLEANED WITH PEROXIDE AND WRAPPED WITH KERLEX GAUZE PER BENSON CONNOLLY.
[2018-10-19] MEDS ORDERED: FLUC150T PO (20:42)
[2018-10-19 20:51] VITALS: BP 115/65
== END 2018-10-19 20:51 | disposition home or self-care (01) ==
LOC: EDUNIT# 20:02 → ER 20:05
DX: L03.115 Cellulitis of right lower limb (principal); S82.891D Other fracture of right lower leg, subsequent encounter for closed fracture with routine healing; F41.9 Anxiety disorder, unspecified; F32.9 Major depressive disorder, single episode, unspecified; Z23 Encounter for immunization; Z90.49 Acquired absence of other specified parts of digestive tract; X58.XXXD Exposure to other specified factors, subsequent encounter
CPT/HCPCS: 90471; 90715

== ENCOUNTER 2019-09-30 18:19 | Emergency (ER) | payer MEDICAID ==
[~2019-09-30] VITALS: Ht 180.3 cm; Wt 84.0 kg
[~2019-09-30 18:19] MED LIST changes: +DOXY100T2 PO; +FLUC150T PO; +SULF-222 PO
[2019-09-30 18:27] VITALS: BP 131/84
[2019-09-30] MEDS ORDERED: KETOROLAC 60 MG/2 ML VIAL IM ONE (18:45)
--- NOTE | 2019-09-30 18:45 | ED Lower Extremity ---
General Chief Complaint: Lower Extremity Stated Complaint: BILAT FEET SWOLLEN TOP Source: patient Exam Limitations: no limitations History of Present Illness Date Seen by Provider: Sep 30, 2019 Time Seen by Provider: 18:32 Initial Comments Patient presents ER by private conveyance from home with chief complaint that today he was out cleaning his shed this morning and this afternoon he started having quite a bit of pain 7 out of 10 and bilateral soles of his feet. He was wearing sandals. He says her worsen chemicals in his shed including bleach. The summer being bit by a spider but he does noted spiders lives in the shed. He has not taken anything for the pain. He is not having Any fevers chills nausea vomiting diarrhea shortness of breath or constipation. Allergies and Home Medications Allergies Coded Allergies: No Known Drug Allergies (Unverified , 09/26/18) Home Medications Doxycycline Hyclate 100 Mg Tablet, 100 MG PO BID Prescribed by: KAREN ZAVALA on 10/19/182039 Fluconazole 150 Mg Tablet, 150 MG PO DAILY Take 1 tablet today, then second tablet in 3 days. Prescribed by: KAREN ZAVALA on 10/19/182041 Lorazepam 1 Mg Tablet, 1 MG SL Q2H PRN for ANXIETY, (Reported) Sulfamethoxazole/Trimethoprim 1 Each Tablet, 1 EACH PO BID Prescribed by: JERILYN SHER on 07/25/15 0251 Sulfamethoxazole/Trimethoprim 1 Each Tablet, 1 EACH PO BID Prescribed by: KAREN ZAVALA on 10/19/182039 Patient Home Medication List Home Medication List Reviewed: Yes Review of Systems Constitutional: No chills, No fever, No malaise EENTM: No ear discharge, No ear pain Respiratory: No cough, No short of breath Cardiovascular: No edema, No vascular heart diseas Gastrointestinal: No abdominal pain, No nausea, No vomiting Genitourinary: No discharge, No dysuria Musculoskeletal: No back pain, No joint pain Skin: see HPI All Other Systems Reviewed Negative Unless Noted: Yes Past Vdigzyu-Zplazo-Kxkqsz Hx Patient Social History Alcohol Use: Denies Use Recreational Drug Use: Yes Drug of Choice: MARIJUANA Smoking Status: Current Everyday Smoker Type Used: Cigarettes Recent Foreign Travel: No Contact w/Someone Who Travel: No Recent Hopitalizations: No Immunizations Up To Date Tetanus Booster (TDap): Unknown Seasonal Allergies Seasonal Allergies: No Past Medical History Surgeries: Yes (jaw surgery) Appendectomy, Orthopedic Respiratory: No Cardiac: No Neurological: No Genitourinary: No Gastrointestinal: No Musculoskeletal: No Endocrine: No HEENT: No Cancer: No Psychosocial: Yes Anxiety, Depression Integumentary: No Physical Exam Vital Signs Capillary Refill : Height, Weight, BMI Height: 5'11.00" Weight: 180lbs. oz. 81.833752ao; 22.96 BMI Method:Stated General Appearance: WD/WN, no apparent distress HEENT: PERRL/EOMI, normal ENT inspection, TMs normal, pharynx normal Neck: non-tender, full range of motion, supple, normal inspection Cardiovascular: normal peripheral pulses, regular rate, rhythm, no edema Respiratory: chest non-tender, lungs clear, normal breath sounds, no respiratory distress, no accessory muscle use Hips: bilateral hip non-tender, bilateral hip normal inspection, bilateral hip normal range of motion Legs: bilateral leg non-tender, bilateral leg normal inspection, bilateral leg normal range of motion Feet: bilateral foot normal range of motion, bilateral foot pain, bilateral foot soft tissue tenderness, bilateral foot swelling, bilateral foot other (bilateral tops of her feet) Neurologic/Tendon: normal sensation, normal motor functions, responds to pain Neurologic/Psychiatric: alert, normal mood/affect, oriented x 3 Skin: rash (are tender edematous erythematous tonsils the bilateral dorsal feet insistent with intact jose. No bullae) Progress/Results/Core Measures Results/Orders My Orders Orders - LORAINE PATHAK Ketorolac Injection (Toradol Injection) (09/30/19 18:45) Progress Progress Note : Time: 18:45 Progress Note Look like either contact dermatitis or a chemical burn. We'll put him on some antibiotics to prevent cellulitis and encourage him to keep feet clean compressed and elevated. He has a primary care physician which we have encouraged him to follow-up with later this week or early next week for reevaluation. Return precautions been given. Toradol for pain. Departure Impression Primary Impression: Chemical burn of foot Qualified Codes: T25.529A - Corrosion of first degree of unspecified foot, initial encounter Disposition: 01 HOME, SELF-CARE Condition: Stable Departure-Patient Inst. Decision time for Depature: 18:46 Referrals: [facility] (PCP/Family) Primary Care Physician Patient Instructions: Skin Jose (DC) Add. Discharge Instructions: Keep the skin clean with regular soap and water only. Do not use astringents such as hydrogen peroxide, alcohol, iodine, witch maria del carmen etc. You may develop some blisters and if this is the case just keep them clean and dressed with gauze until they go away. Elevate your feet above the level of your heart when possible. An Demetrio bandage for compression over top of some gauze and burn cream of your choice jggw-ffz-bawnovb would be reasonable. Take Keflex 4 times a day for the next week to prevent cellulitis. Return to the ER if you're having redness and swelling traveling up your legs, nausea, fever above 100.3 or other worrisome symptoms. Plan to follow up with your primary care doctor by calling for an appointment tomorrow and being seen either later this week or early next week. Tylenol 1000 mg every 8 hours as necessary for pain. Ibuprofen 800 mg every 8 hours as necessary for pain. All discharge instructions reviewed with patient and/or family. Voiced understanding. Scripts Cephalexin (Keflex) 500 Mg Capsule 500 MG PO BID for 7 Days, #14 CAP 0 Refills Prov: LORAINE PATHAK 09/30/19 LORAINE PATHAK Sep 30, 2019 18:45
[2019-09-30] MEDS ORDERED: CEPH-507 PO (18:48)
== END 2019-09-30 19:11 | disposition home or self-care (01) ==
LOC: EDUNIT# 18:19 → ER 18:20
DX: T25.522A Corrosion of first degree of left foot, initial encounter (principal); T25.521A Corrosion of first degree of right foot, initial encounter; T54.91XA Toxic effect of unspecified corrosive substance, accidental (unintentional), initial encounter; F41.9 Anxiety disorder, unspecified; F32.9 Major depressive disorder, single episode, unspecified; F17.210 Nicotine dependence, cigarettes, uncomplicated
CPT/HCPCS: 99283

== ENCOUNTER 2020-12-11 00:27 | Emergency (ER) | payer MEDICAID ==
[~2020-12-11] VITALS: Ht 178 cm; Wt 84.0 kg
[~2020-12-11 00:27] MED LIST changes: +CEPH-507 PO; -SULF1TAB35 PO; +SULF1TAB38 PO
[2020-12-11] MEDS ORDERED: TETANUS,DIPTH,PERTUSS P/F (BOOSTRIX) 0.5 ML VIAL IM ONE (01:30)
--- NOTE | 2020-12-11 01:31 | ED Integumentary General ---
General Chief Complaint: Skin/Wound Problems Stated Complaint: FOOT PAIN/SWELLING/INFECTION Nursing Triage Note: PT REPORTS INSECT BITE 12/03/20 TO LEFT MEDIAL ANKLE. REPORTS SCRATCHING BITE ET. CAUSING WOUND. C/O REDNESS/SWELLING TO LEFT ANKLE WORSE X2DAYS. Source: patient (SPEECH IS RAPID AND ERRATIC AND GIVES INCONSISTENT HISTORY) History of Present Illness Date Seen by Provider: Dec 11, 2020 Time Seen by Provider: 01:10 Initial Comments PT ARRIVES VIA POV C/O INFECTED INSECT BITE TO LEFT ANKLE STATES HE WENT CAMPING 3 WEEKS AGO, AND "GOT A BUNCH OF CHIGGER BITES" AND HAS BEEN VIGOROUSLY SCRATCHING THEM STATES IN THE LAST 24 HOURS, THE AREA OF PREVIOUS INSECT BITE TO HIS LEFT MEDIAL ANKLE HAS BECOME RED AND PAINFUL AND HAS HAD SWELLING TO THE AREA SINCE NOON TODAY NO DRAINAGE NO FEVER NO STREAKS PT HAS BEEN "POURING STRAIGHT ALCOHOL AND HYDROGEN PEROXIDE OVER IT FOR AN HOUR STRAIGHT" SEVERAL TIMES TODAY HAS NOT TAKEN ANYTHING FOR PAIN HAS HISTORY OF ''STAPH INFECTION" IN THE PAST PT HAS HISTORY OF IV METH USE, BUT CLAIMS HE HAS NEVER SHOT UP IN HIS FEET, AND CLAIMS HE HAS NOT USED IT IV "IN A LONG TIME"--STATES HE HAS BEEN TO REHAB IN 2019. LAST TETANUS SHOT IS UNKNOWN PT DOES NOT KNOW IF HE IS DIABETIC OR NOT --STATES "NEVER BEEN CHECKED" PCP: [facility],--HAS NOT BEEN THERE IN A LONG TIME, USED TO SEE [facility]E RUNNER NAYELY GILL Allergies and Home Medications Allergies Coded Allergies: No Known Drug Allergies (Unverified , 09/26/18) Patient Home Medication List Home Medication List Reviewed: Yes Mupirocin (Mupirocin) 22 Gm Oint...g., 22 GM TP BID Prescribed by: JOYA LINDSAY on 12/11/20145 Prednisone (Prednisone) 20 Mg Tab, 40 MG PO DAILY Prescribed by: JOYA LINDSAY on 12/11/20145 Sulfamethoxazole/Trimethoprim (Bactrim Ds Tablet) 1 Each Tablet, 1 EACH PO BID Prescribed by: JOYA LINDSAY on 12/11/20145 Discontinued Medications Cephalexin (Keflex) 500 Mg Capsule, 500 MG PO BID Discontinued Reason: No Longer Taking Prescribed by: LORAINE PATHAK on 09/30/19 2461 Last Action: Discontinued Doxycycline Hyclate (Doxycycline Hyclate) 100 Mg Tablet, 100 MG PO BID Discontinued Reason: No Longer Taking Prescribed by: KAREN ZAVALA on 10/19/182039 Last Action: Discontinued Fluconazole (Diflucan) 150 Mg Tablet, 150 MG PO DAILY Discontinued Reason: No Longer Taking Prescribed by: KAREN ZAVALA on 10/19/182041 Last Action: Discontinued Lorazepam (Ativan) 1 Mg Tablet, 1 MG SL Q2H PRN for ANXIETY, (Reported) Discontinued Reason: No Longer Taking Entered as Reported by: YVAN RUCKER on 09/26/182028 Last Action: Discontinued Sulfamethoxazole/Trimethoprim (Bactrim Ds Tablet) 1 Each Tablet, 1 EACH PO BID Discontinued Reason: No Longer Taking Prescribed by: JERILYN SHER on 07/25/15250 Last Action: Discontinued Sulfamethoxazole/Trimethoprim (Sulfamethoxazole-Tmp Ds Tablet) 1 Each Tablet, 1 EACH PO BID Discontinued Reason: No Longer Taking Prescribed by: KAREN ZAVALA on 10/19/182039 Last Action: Discontinued Review of Systems Review of Systems Constitutional: no symptoms reported Musculoskeletal: see HPI Skin: see HPI Psychiatric/Neurological: No Symptoms Reported Past Owanqtw-Vczybq-Dyyinp Hx Patient Social History Tobacco Use?: Yes (1 PPD) Tobacco type used: Cigarettes Smoking Status: Current Everyday Smoker Substance use?: Yes Substance type: Methamphetamine, Marijuana Additional substance use comme: + IV METH USE, THC USE Alcohol Use?: Yes (HISTORY OF ABUSE, NOW OCCASIONAL USE) Alcohol Frequency: Once in a while Pt feels they are or have been: No Immunizations Up To Date Tetanus Booster (TDap): Unknown Seasonal Allergies Seasonal Allergies: No Past Medical History Surgery/Hospitalization HX: APPY RIGHT ANKLE FRACTURE JAW SURGERY Surgeries: Yes (jaw surgery) Appendectomy, Orthopedic Respiratory: No Cardiac: No Neurological: No Genitourinary: No Gastrointestinal: No Musculoskeletal: Yes (RIGHT ANKLE FRACTURE) Fractures Endocrine: No HEENT: No Cancer: No Psychosocial: Yes (POLYSUBSTANCE ABUSE) Anxiety, Depression Integumentary: Yes ("STAPH INFECTION"/ MRSA; I&D ABSCESS) Physical Exam Vital Signs Vital Signs - First Documented 12/11/20 00:36 Temp 36.8 Pulse 95 Resp 18 B/P (MAP) 138/91 (107) Pulse Ox 99 O2 Delivery Room Air Capillary Refill : Less Than 3 Seconds General Appearance: WD/WN, no apparent distress, other (PT VERY PLEASANT AND COOPERATIVE, BUT SPEECH IS VERY RAPID AND ERRATIC AND GIVES INCONSISTENT INFORMATION) Extremities: other (MEDIAL ASPECT OF RIGHT ANKLE WITH APPROXIMATELY 1 CM ULCERATED AREA--DRY BASE, BUT NO SCAB FORMATION. MODERATE SWELLING TO ENTIRE ANKLE, BUT IS MOST SWOLLEN OVER MEDIAL MALLEOLUS AREA. HAS SURROUNDING ERYTHEMA TO MEDIAL HALF OF ANKLE, DOES NOT CROSS MIDLINE. NO STREAKS. NO FLUCTUANCE, NO DRAINAGE. NO BONY TENDERNESS. MOTOR/SENSORY/VASCULAR INTACT ) Neurologic/Psychiatric: acquisition manager II-XII nml as tested, no motor/sensory deficits, alert, normal mood/affect, oriented x 3 Skin: normal color, warm/dry Progress/Results/Core Measures Results/Orders Lab Results Laboratory Tests Test 12/11/20 01:29 Range/Units Glucometer 113 H 70-110 MG/DL My Orders Orders - JOYA LINDSAY DO Accucheck Stat ONCE (12/11/20 01:26) Dipht,Pertuss(Acell),Tet Adult (Boostrix (12/11/20 01:30) Clindamycin Injection (Cleocin Injection (12/11/20 01:45) Methylprednisolone Sod Succ (Solu-Medrol (12/11/20 01:45) Vital Signs/I&O 12/11/20 00:36 Temp 36.8 Pulse 95 Resp 18 B/P (MAP) 138/91 (107) Pulse Ox 99 O2 Delivery Room Air Blood Pressure Mean: 107 Progress Progress Note : Progress Note DPT GIVEN CLINDAMYCIN AND SOLU-MEDROL GIVEN PT STATES HE HAS TAKEN BACTRIM IN PAST FOR "STAPH INFECTIONS" AND NOT HAD ANY PROBLEMS Departure Impression Primary Impression: Cellulitis of left ankle Additional Impressions: Hx MRSA infection Lguxsbvtso-louhppzqn-suyiyzn (DPT) vaccination administered at current visit Disposition: HOME, SELF-CARE Condition: Stable Departure-Patient Inst. Decision time for Depature: 01:30 Referrals: [facility] (PCP/Family) Primary Care Physician Patient Instructions: Cellulitis (Skin Infection), Adult ED, Diphtheria and Tetanus Toxoids, and Acellular Pertussis Vaccine, MRSA (DC) Add. Discharge Instructions: GENTLY CLEAN WOUND TWICE A DAY WITH ANTIBACTERIAL SOAP AND WATER DO NOT USE PEROXIDE OR ALCOHOL ON THE WOUND AT THIS TIME APPLY ANTIBIOTIC OINTMENT AND FRESH DRESSING TWICE A DAY TYLENOL NEEDED FOR PAIN FOLLOW UP WITH [facility] IN 1-2 DAYS FOR FURTHER CARE, RETURN TO ER IF WORSE All discharge instructions reviewed with patient and/or family. Voiced unders tanding. Scripts Mupirocin (Mupirocin) 22 Gm Oint...g. 22 GM TP BID, #1 TUBE Prov: JOYA LINDSAY DO 12/11/20 Prednisone (Prednisone) 20 Mg Tab 40 MG PO DAILY, #6 TAB 0 Refills Prov: JOYA LINDSAY DO 12/11/20 Sulfamethoxazole/Trimethoprim (Bactrim Ds Tablet) 1 Each Tablet 1 EACH PO BID, #20 TAB Prov: JOYA LINDSAY DO 12/11/20 Images Extremities-Lower 1 - Other-See Progress Note 2 - Cellulitis, Swelling, Tenderness JOYA LINDSAY DO Dec 11, 2020 01:31
[2020-12-11] MEDS ORDERED: CLINDAMYCIN 600 MG/4ML (CLEOCIN) VIAL ONE (01:43)
[2020-12-11] MEDS ORDERED: methylPREDNISolone 125 MG (Solu-MEDROL) VIAL IM ONE (01:45)
[2020-12-11] MEDS ORDERED: CLINDAMYCIN 600 MG/4ML (CLEOCIN) VIAL IM ONE (01:45)
[2020-12-11] MEDS ORDERED: SULF1TAB38 PO (01:46)
[2020-12-11] MEDS ORDERED: PRD20T PO (01:46)
[2020-12-11] MEDS ORDERED: MUPI22OI2 TP (01:46)
[2020-12-11 02:08] VITALS: BP 132/87
== END 2020-12-11 02:11 | disposition home or self-care (01) ==
LOC: EDUNIT# 00:27 → ER 00:29
DX: L03.116 Cellulitis of left lower limb (principal); F17.210 Nicotine dependence, cigarettes, uncomplicated; Z86.14 Personal history of Methicillin resistant Staphylococcus aureus infection; Z23 Encounter for immunization
CPT/HCPCS: 82947; 90715